=== PATIENT | female | born 1980 | race African-American/Black ===

== ENCOUNTER 2017-03-15 23:26 | Inpatient (IN) | payer OTHER ==
[~2017-03-15] VITALS: Ht 167.6 cm; Wt 72.6 kg
[2017-03-15 23:30] VITALS: BP 134/75
[2017-03-15] MEDS ORDERED: OXYTOCIN 30 UNIT/500 ML PREMIX 500 ML IV PRN (23:45)
[2017-03-15] MEDS ORDERED: IV RINGERS,LACTATED 1000ML 1,000 ML IV SCH (23:45)
[2017-03-15] MEDS ORDERED: IBUPROFEN 600 MG TABLET. PO PRN (23:45)
[2017-03-15] MEDS ORDERED: ACETAMINOPHEN 325 MG TABLET. PO PRN (23:45)
[2017-03-15] MEDS ORDERED: LIDOCAINE 1% PF 30 ML VIAL. INJ PRN (23:45)
[2017-03-15] MEDS ORDERED: 0.9 % SODIUM CHLORIDE 10 ML DISP.SYRIN. IV PRN (23:45)
[2017-03-16] VITALS (12 sets, daily range): BP systolic 112–151; BP diastolic 75–97
[2017-03-16 00:39] LABS: HEMATOCRIT 24.8 % (36.0-47.0); HEMOGLOBIN 7.6 g/dL (12.0-15.5); RED BLOOD COUNT 3.67 x10^6/uL (3.50-5.40); RED CELL DISTRIBUTION WIDTH 20.7 % (11.5-14.5); WHITE BLOOD COUNT 22.4 x10^3/uL (4.0-11.0)
[2017-03-16 00:46] LABS: BILIRUBIN,URINE NEGATIVE (NEG); GLUCOSE,URINE NEGATIVE (NEG); NITRITE,URINE POSITIVE (NEG); PROTEIN,URINE 100 mg/dL (NEG-TRACE); UROBILINOGEN,URINE 0.2 mg/dL (0.2 mg/dL)
[2017-03-16 00:52] LABS: BARBITURATES NEG (NEG); BENZODIAZEPINES NEG (NEG); CANNABINOIDS NEG (NEG); COCAINE NEG (NEG); METHADONE NEG (NEG); OPIATES NEG (NEG); PHENCYCLIDINE NEG (NEG)
[2017-03-16 00:59] LABS: BACTERIA,URINE MANY /HPF (0-FEW); RBC,URINE >40 /HPF (0-2); SQUAMOUS EPITHELIAL CELL,UR FEW /LPF; WBC,URINE 20-40 /HPF (0-4)
[2017-03-16] MEDS ORDERED: METHYLERGONOVINE MALEATE 0.2 MG/ML VIAL. IM ONE ×2 (01:55→02:00)
[2017-03-16] MEDS: AMPICILLIN SODIUM 2 GM in IV NORMAL SALINE 100ML 100 ML IV SCH ×4 (02:00→18:06)
[2017-03-16] MEDS ORDERED: diphenhydrAMINE HCL 25 MG CAPSULE PO PRN (03:15)
[2017-03-16] MEDS ORDERED: ZOLPIDEM 5 MG TABLET. PO PRN (03:15)
[2017-03-16] MEDS ORDERED: HYDROCORTISONE 1% TOPICAL OINTMENT 30GM TUBE. TP PRN (03:15)
[2017-03-16] MEDS ORDERED: oxyCODONE/APAP 5/325 1 TAB TABLET PO PRN (03:15)
[2017-03-16] MEDS ORDERED: MAGNESIUM HYDROXIDE 2,400 MG/30 ML ORAL.SUSP. PO PRN (03:15)
[2017-03-16] MEDS ORDERED: MMR per PROTOCOL. MC PRN (03:15)
[2017-03-16] MEDS ORDERED: IBUPROFEN 800 MG TABLET. PO PRN (03:15)
[2017-03-16] MEDS ORDERED: OXYTOCIN 30 UNIT/500 ML PREMIX 500 ML IV PRN (03:15)
[2017-03-16] MEDS ORDERED: MAG HYDROX/ALUMINUM HYD/SIMETH 30 ML ORAL.SUSP PO PRN (03:15)
[2017-03-16] MEDS ORDERED: 0.9 % SODIUM CHLORIDE 10 ML DISP.SYRIN. IV PRN (03:15)
[2017-03-16] MEDS ORDERED: BENZOCAINE 20% TOPICAL AEROSOL SPRAY 57GM CAN. TP PRN (03:15)
[2017-03-16] MEDS ORDERED: SIMETHICONE 80 MG TAB.CHEW PO PRN (03:15)
[2017-03-16] MEDS ORDERED: PHENYLEPH/MINERAL OIL/PETROLAT RECTAL OINTMENT 28GM TUBE. RC PRN (03:15)
[2017-03-16] MEDS ORDERED: ACETAMINOPHEN 325 MG TABLET. PO PRN (03:15)
[2017-03-16 08:22] LABS: BASO # 0.1 x10^3/uL (0.0-0.2); BASO % 1 % (0-3); EOS % 1 % (0-3); HEMATOCRIT 23.1 % (36.0-47.0); LYMPH # 3.8 x10^3/uL (1.0-4.8); LYMPH % 20 % (24-48); MEAN CORPUSCULAR HEMOGLOBIN 20 pg (25-35); MEAN CORPUSCULAR HGB CONC 30 g/dL (31-37); MEAN CORPUSCULAR VOLUME 67 fL (79-100); MONO % 7 % (0-9); NEUT % 72 % (31-73); PLATELET COUNT 157 x10^3/uL (140-400); RED BLOOD COUNT 3.45 x10^6/uL (3.50-5.40); WHITE BLOOD COUNT 19.1 x10^3/uL (4.0-11.0)
[2017-03-16 08:30] LABS: HEMOGLOBIN 6.8 g/dL (12.0-15.5)
--- NOTE | 2017-03-16 10:01 | PDOC ---
SUBJECTIVE Subjective 36 yrs old lady Delivered at home in the Bathtub All placenta came out.Patient delivered the Baby herself. Came to hospital as it is delivery OBJECTIVE Objective Vital signs stable Uterus firm Vital Signs Vital Signs Date Time Temp Pulse Resp B/P (MAP) Pulse Ox O2 Delivery O2 Flow Rate FiO2 03/16/17 05:41 98.7 77 14 131/90 (104) 98.7 03/16/17 03:37 98.5 75 18 128/83 (98) 98.5 03/16/17 00:48 98.2 98.2 03/15/17 23:30 121 18 134/75 (94) Room Air PHYSICAL EXAM Physical Exam Hb today is 6G Will transfuse 2 units of Packed cells BT Patioent is stable.NO VAGINAL BLEEDING ASSESSMENT/PLAN Assessment/Plan will repeat Hb count after BT Problems: COMMENT Lab Laboratory Tests Test 03/16/17 00:20 03/16/17 00:30 03/16/17 08:07 White Blood Count 22.4 x10^3/uL (4.0-11.0) 19.1 x10^3/uL (4.0-11.0) Red Blood Count 3.67 x10^6/uL (3.50-5.40) 3.45 x10^6/uL (3.50-5.40) Hemoglobin 7.6 g/dL (12.0-15.5) 6.8 g/dL (12.0-15.5) Hematocrit 24.8 % (36.0-47.0) 23.1 % (36.0-47.0) Mean Corpuscular Volume 68 fL (79-100) 67 fL (79-100) Mean Corpuscular Hemoglobin 21 pg (25-35) 20 pg (25-35) Mean Corpuscular Hemoglobin Concent 31 g/dL (31-37) 30 g/dL (31-37) Red Cell Distribution Width 20.7 % (11.5-14.5) 20.0 % (11.5-14.5) Platelet Count 154 x10^3/uL (140-400) 157 x10^3/uL (140-400) Urine Collection Type U cath Urine Color Mana Urine Clarity Cloudy Urine pH 6.0 Urine Specific [place] >=1.030 Urine Protein 100 mg/dL (NEG-TRACE) Urine Glucose (UA) Negative mg/dL (NEG) Urine Ketones (Stick) Negative mg/dL (NEG) Urine Blood Large (NEG) Urine Nitrite Positive (NEG) Urine Bilirubin Negative (NEG) Urine Urobilinogen Dipstick 0.2 mg/dL (0.2 mg/dL) Urine Leukocyte Esterase Small (NEG) Urine RBC >40 /HPF (0-2) Urine WBC 20-40 /HPF (0-4) Urine Squamous Epithelial Cells Few /LPF Urine Bacteria Many /HPF (0-FEW) Urine Mucus Slight /LPF Urine Opiates Screen Neg (NEG) Urine Methadone Screen Neg (NEG) Urine Barbiturates Neg (NEG) Urine Phencyclidine Screen Neg (NEG) Urine Amphetamine/Methamphetamine Neg (NEG) Urine Benzodiazepines Screen Neg (NEG) Urine Cocaine Screen Neg (NEG) Urine Cannabinoids Screen Neg (NEG) Urine Ethyl Alcohol Pos (NEG) Neutrophils (%) (Auto) 72 % (31-73) Lymphocytes (%) (Auto) 20 % (24-48) Monocytes (%) (Auto) 7 % (0-9) Eosinophils (%) (Auto) 1 % (0-3) Basophils (%) (Auto) 1 % (0-3) Neutrophils # (Auto) 13.7 x10^3uL (1.8-7.7) Lymphocytes # (Auto) 3.8 x10^3/uL (1.0-4.8) Monocytes # (Auto) 1.2 x10^3/uL (0.0-1.1) Eosinophils # (Auto) 0.2 x10^3/uL (0.0-0.7) Basophils # (Auto) 0.1 x10^3/uL (0.0-0.2) BRE GOMEZ MD Mar 16, 2017 10:01
--- NOTE | 2017-03-16 10:42 | HP ---
ADMIT DATE: 03/16/2017 CHIEF COMPLAINT AND HISTORY OF PRESENT ILLNESS: This patient is a 36-year-old -Stateless lady who is a 5, para 4 and patient delivered the baby at home in the bathtub and came into the hospital. She did have a labor and delivery and a live 4 pounds baby was delivered at home and the patient says she also delivered the placenta spontaneous and admitted to the hospital for further care and treatment. PHYSICAL EXAMINATION: VITAL SIGNS: Being stable. HEAD, EYES, NOSE, THROAT: Within normal limits. ABDOMEN: Soft. Uterus quite firm. No excessive vaginal bleeding at this time. EXTREMITIES: No edema of feet. IMPRESSION: labor and delivery at home, secondary anemia. Hemoglobin 6 at this time. We will transfuse her with 2 units of packed cells blood transfusion. BRE GOMEZ MD DR: DEEJAY/sammy JOB#: [id number] / [id number]
[2017-03-16 11:33] LABS: HYPOCHROMIA MARKED; MICROCYTOSIS MARKED; PLT ESTIMATE ADEQUATE (ADEQUATE)
[2017-03-16 11:34] LABS: ANISOCYTOSIS MOD
[2017-03-16 23:07] LABS: HEMATOCRIT 28.5 % (36.0-47.0); HEMOGLOBIN 8.8 g/dL (12.0-15.5)
[2017-03-17] MEDS: AMPICILLIN SODIUM 2 GM in IV NORMAL SALINE 100ML 100 ML IV SCH (00:08)
[2017-03-17 05:58] VITALS: BP 116/77
[2017-03-17] MEDS ORDERED: FERROUS SULFATE 325 MG TABLET. PO SCH (08:00)
--- NOTE | 2017-03-17 10:01 | PDOC ---
SUBJECTIVE Subjective Patent feeling good Wants to go home OBJECTIVE Objective Patient received 2 units of Packed cells BT Hb 8.2 today Vital Signs Vital Signs Date Time Temp Pulse Resp B/P (MAP) Pulse Ox O2 Delivery O2 Flow Rate FiO2 03/17/17 05:58 98.1 67 14 116/77 (90) 98.1 03/16/17 23:13 97.8 56 14 131/89 (103) 97.8 03/16/17 18:19 98.2 78 18 118/75 (89) Room Air 98.2 03/16/17 17:16 98.1 79 18 137/93 98.1 03/16/17 16:00 98.9 87 16 125/94 98.9 03/16/17 15:07 98.3 83 18 112/79 98.3 03/16/17 14:43 98.4 85 16 119/76 98.4 03/16/17 12:24 98.7 73 18 138/97 98.7 03/16/17 11:15 98.9 67 16 139/92 98.9 03/16/17 10:14 98.7 81 18 125/87 98.7 PHYSICAL EXAM Physical Exam Abdomen soft No fever Lochia normal ASSESSMENT/PLAN Assessment/Plan Patient can go home today Will see her in 6 weeks in office Problems: COMMENT Lab Laboratory Tests Test 03/16/17 22:00 Hemoglobin 8.8 g/dL (12.0-15.5) Hematocrit 28.5 % (36.0-47.0) Mean Corpuscular Hemoglobin Concent 31 g/dL (31-37) BRE GOMEZ MD Mar 17, 2017 10:01
[2017-03-17] MEDS ORDERED: DIPHTH,PERTUSS(ACELL),TET TOX 0.5 ML DISP.SYRIN. VAX IM ONE (12:00)
[2017-03-17 12:20] VITALS: BP 130/91
[2017-03-17 23:12] LABS: RPR REFLEX Non Reactive (Non Reactive)
== END 2017-03-17 13:09 | disposition home or self-care (01) | DRG 775 ==
LOC: 3 SO LND 23:26 → 3 NORTH 03-16 03:09
PROVIDERS: ADMIT Obstetrics & Gynecology; ATTEND Obstetrics & Gynecology
PROC: 30233N1 Transfusion of Nonautologous Red Blood Cells into Peripheral Vein, Percutaneous Approach (ICD-10-PCS; principal; 2017-03-16)
DX: O60.10X0 Preterm labor with preterm delivery, unspecified trimester, not applicable or unspecified (principal); Z37.0 Single live birth
CPT/HCPCS: 36415; 80307; 81001; 85007; 85014; 85018; 85025; 85027; 86593; 86762; 86850; 86900; 86901; 86920; 87086; 87340; 87341; 90715; J0290; J2210; J2590; P9016; G0479

== ENCOUNTER 2020-01-27 11:31 | Inpatient (IN) | payer OTHER ==
[~2020-01-27] VITALS: Ht 167.6 cm; Wt 83.2 kg
[2020-01-27] MEDS ORDERED: FAMOTIDINE 20 MG/2 ML VIAL IVP ONE (12:00)
[2020-01-27] MEDS ORDERED: ONDANSETRON PF 4 MG/2 ML VIAL. IVP ONE (12:00)
[2020-01-27] MEDS ORDERED: IV NORMAL SALINE 1000ML BAG 1,000 ML IV ONE (12:00)
[2020-01-27 12:23] LABS: BASO # 0.1 x10^3/uL (0.0-0.2); BASO % 0 % (0-3); EOS # 0.1 x10^3/uL (0.0-0.7); EOS % 1 % (0-3); HEMATOCRIT 44.2 % (36.0-47.0); HEMOGLOBIN 14.9 g/dL (12.0-15.5); LYMPH # 2.4 x10^3/uL (1.0-4.8); LYMPH % 13 % (24-48); MEAN CORPUSCULAR HEMOGLOBIN 30 pg (25-35); MEAN CORPUSCULAR HGB CONC 34 g/dL (31-37); MEAN CORPUSCULAR VOLUME 90 fL (79-100); MONO # 1.8 x10^3/uL (0.0-1.1); MONO % 10 % (0-9); NEUT # 14.6 x10^3/uL (1.8-7.7); NEUT % 77 % (31-73); PLATELET COUNT 273 x10^3/uL (140-400); RED BLOOD COUNT 4.91 x10^6/uL (3.50-5.40); RED CELL DISTRIBUTION WIDTH 13.4 % (11.5-14.5); WHITE BLOOD COUNT 19.1 x10^3/uL (4.0-11.0)
[2020-01-27 12:28] LABS: BILIRUBIN,URINE MODERATE (NEG); CLARITY,URINE CLOUDY; COLOR,URINE AMBER; NITRITE,URINE NEGATIVE (NEG); PROTEIN,URINE NEGATIVE (NEG-TRACE)
[2020-01-27 12:46] LABS: ALBUMIN 3.9 g/dL (3.4-5.0); ALBUMIN/GLOBULIN RATIO 0.8 (1.0-1.7); CALCIUM 10.1 mg/dL (8.5-10.1); CREATININE 0.9 mg/dL (0.6-1.0); GFR 84.8; MAGNESIUM 1.6 mg/dL (1.8-2.4); TOTAL BILIRUBIN 1.4 mg/dL (0.2-1.0); TOTAL PROTEIN 8.8 g/dL (6.4-8.2)
[2020-01-27 12:48] LABS: AMORPHOUS SEDIMENT,UR PRESENT /HPF; HYALINE CASTS, URINE FEW /HPF; SQUAMOUS EPITHELIAL CELL,UR FEW /LPF
[2020-01-27 12:50] LABS: BACTERIA,URINE FEW /HPF (0-FEW)
[2020-01-27 12:53] LABS: BARBITURATES NEG (NEG); BENZODIAZEPINES NEG (NEG); CANNABINOIDS NEG (NEG); COCAINE NEG (NEG); METHADONE NEG (NEG); OPIATES NEG (NEG); PHENCYCLIDINE NEG (NEG)
[2020-01-27 13:05] LABS: POTASSIUM 1.8 mmol/L (3.5-5.1)
[2020-01-27 13:06] LABS: AMPHETAMINE/METHAMPHETAMINE NEG (NEG)
[2020-01-27 13:09] LABS: % ATYL 3 % (0-0); % LYMPHS 20 % (24-48); % MONOS 9 % (0-10); % SEGS 68 % (35-66); PLT ESTIMATE ADEQUATE (ADEQUATE)
[2020-01-27] MEDS ORDERED: POTASSIUM CHLORIDE 20 MEQ TABLET.ER. PO ONE (13:15)
[2020-01-27] MEDS ORDERED: IOHEXOL 300 MG/ML 100ML VIAL. IV ONE ×2 (13:15→14:30)
[2020-01-27 14:26] LABS: U PREG PATIENT NEGATIVE (NEG)
[2020-01-27] MEDS ORDERED: CONTRAST GIVEN. MC PRN (14:30)
--- NOTE | 2020-01-27 14:59 | RAD ---
EXAM: CT Abdomen and Pelvis with IV contrast INDICATION: Reason: abd pain, elevated WBC / Spl. Instructions: [id number] 75ml / History: TECHNIQUE: Multi-detector row CT images were acquired from the lung bases through the abdomen and pelvis with the use of IV contrast. Sagittal and coronal images were acquired from the transaxial data. All CT scans performed at this facility utilize dose optimization techniques as appropriate to the exam, including the following: Automated exposure control and adjustment of the mA and/or KV according to patient size (this includes techniques or standardized protocols for targeted exams where dose is indication/reason for exam). IV CONTRAST: Administered ORAL CONTRAST: Administered COMPARISON: None FINDINGS: LOWER CHEST: Unremarkable LIVER: Unremarkable BILIARY SYSTEM: Gallbladder is unremarkable. Bile ducts are not dilated. PANCREAS: Unremarkable SPLEEN: Unremarkable ADRENALS: Unremarkable KIDNEYS & URETERS: Unremarkable BLADDER: Unremarkable REPRODUCTIVE ORGANS: Unremarkable GASTROINTESTINAL: There is mild wall thickening in the large bowel, primarily involving the ascending colon and the transverse colon. Mild associated mesenteric hyperemia. Mild nonspecific wall thickening in the gastric antrum is also noted. The small bowel is unremarkable. The appendix is not well seen. There are no findings of acute appendicitis. MESENTERY/PERITONEUM/RETROPERITONEUM: Unremarkable VASCULAR: Unremarkable LYMPH NODES: No adenopathy OSSEOUS & SOFT TISSUES: Unremarkable IMPRESSION: Findings suggesting acute predominantly right-sided and transverse colitis without findings of bowel obstruction or perforation. Superimposed acute gastric antritis also possible. Electronically signed by: Kashif Estrada MD (01/27/2020 2:56 PM) [facility] [place]
[2020-01-27] MEDS ORDERED: CIPROFLOXACIN 400MG PREMIX 200 ML IV ONE (15:30)
[2020-01-27] MEDS ORDERED: ONDANSETRON PF 4 MG/2 ML VIAL. IV PRN (15:30)
[2020-01-27] MEDS ORDERED: MORPHINE SULFATE 2 MG/ML VIAL. IV PRN (15:30)
[2020-01-27] MEDS ORDERED: MAGNESIUM SULFATE 2GM 50 ML IV ONE (15:30)
--- NOTE | 2020-01-27 16:31 | PDOC2 ---
GI CONSULT Date of Service: DATE: 01/27/20 TIME: 16:31 Reason For Consult: acute colitis HPI: HPI: 39 y/o female in ER. Ill for 2-3 weeks. Denies precipitating events. Might have started with diarrhea but that's not too unusual for her, so she didn't think much of it and diarrhea did not recur. Then had bodyaches. Then started vomiting last Saturday. No appetite and unable to keep anything down since - tried chicken and rice earlier this week, vomited 10-15 minutes later. Has low back pain, pelvic pain, and "discharge from my belly button." Had GERD during . No dysphagia, hematemesis, chronic abd pain, hematochezia, melena. Assumes weight loss. Hasn't passed much stool lately since not eating much. No fever but has had some cough and shortness of breath. No previous EGD or colonoscopy. No GB, liver, pancreas, or PUD history. PMH: PMH: per HPI FH: Family History: Other (adopted - mother has kidney problems) Social History: Smoke: No ALCOHOL: none Drugs: None ROS: GEN: Denies fevers, chills, sweats HEENT: Denies blurred vision, sore throat CV: Denies chest pain RESP: +SOA +cough GI: Per HPI : Denies hematuria, dysuria ENDO: +weight loss NEURO: Denies confusion, dizziness MSK: +back pain SKIN: Denies jaundice, pruritus Vitals: Vitals: Vital Signs Date Time Temp Pulse Resp B/P (MAP) Pulse Ox O2 Delivery O2 Flow Rate FiO2 01/27/20 13:35 68 16 129/87 (101) 96 Room Air 01/27/20 11:31 98.3 98.3 Labs: Labs: Laboratory Tests Test 01/27/20 11:57 01/27/20 12:10 White Blood Count 19.1 x10^3/uL (4.0-11.0) Red Blood Count 4.91 x10^6/uL (3.50-5.40) Hemoglobin 14.9 g/dL (12.0-15.5) Hematocrit 44.2 % (36.0-47.0) Mean Corpuscular Volume 90 fL (79-100) Mean Corpuscular Hemoglobin 30 pg (25-35) Mean Corpuscular Hemoglobin Concent 34 g/dL (31-37) Red Cell Distribution Width 13.4 % (11.5-14.5) Platelet Count 273 x10^3/uL (140-400) Neutrophils (%) (Auto) 77 % (31-73) Lymphocytes (%) (Auto) 13 % (24-48) Monocytes (%) (Auto) 10 % (0-9) Eosinophils (%) (Auto) 1 % (0-3) Basophils (%) (Auto) 0 % (0-3) Neutrophils # (Auto) 14.6 x10^3/uL (1.8-7.7) Lymphocytes # (Auto) 2.4 x10^3/uL (1.0-4.8) Monocytes # (Auto) 1.8 x10^3/uL (0.0-1.1) Eosinophils # (Auto) 0.1 x10^3/uL (0.0-0.7) Basophils # (Auto) 0.1 x10^3/uL (0.0-0.2) Segmented Neutrophils % 68 % (35-66) Lymphocytes % 20 % (24-48) Atypical Lymphocytes % (Manual) 3 % (0-0) Monocytes % 9 % (0-10) Platelet Estimate Adequate (ADEQUATE) Sodium Level 121 mmol/L (136-145) Potassium Level 1.8 mmol/L (3.5-5.1) Chloride Level 76 mmol/L (98-107) Carbon Dioxide Level 34 mmol/L (21-32) Anion Gap 11 (6-14) Blood Urea Nitrogen 10 mg/dL (7-20) Creatinine 0.9 mg/dL (0.6-1.0) Estimated GFR (Cockcroft-Gault) 84.8 BUN/Creatinine Ratio 11 (6-20) Glucose Level 139 mg/dL (70-99) Calcium Level 10.1 mg/dL (8.5-10.1) Magnesium Level 1.6 mg/dL (1.8-2.4) Total Bilirubin 1.4 mg/dL (0.2-1.0) Aspartate Amino Transf (AST/SGOT) 40 U/L (15-37) Alanine Aminotransferase (ALT/SGPT) 39 U/L (14-59) Alkaline Phosphatase 116 U/L (46-116) Total Protein 8.8 g/dL (6.4-8.2) Albumin 3.9 g/dL (3.4-5.0) Albumin/Globulin Ratio 0.8 (1.0-1.7) Lipase 207 U/L (73-393) Ethyl Alcohol Level < 10 mg/dL (0-10) Urine Collection Type U cath Urine Color Mana Urine Clarity Cloudy Urine pH 5.0 (<5.0-8.0) Urine Specific [place] 1.025 (1.000-1.030) Urine Protein Negative mg/dL (NEG-TRACE) Urine Glucose (UA) Negative mg/dL (NEG) Urine Ketones (Stick) 15 mg/dL (NEG) Urine Blood Small (NEG) Urine Nitrite Negative (NEG) Urine Bilirubin Moderate (NEG) Urine Urobilinogen Dipstick 1.0 mg/dL (0.2 mg/dL) Urine Leukocyte Esterase Small (NEG) Urine RBC 1-2 /HPF (0-2) Urine WBC 5-10 /HPF (0-4) Urine Squamous Epithelial Cells Few /LPF Urine Amorphous Sediment Present /HPF Urine Bacteria Few /HPF (0-FEW) Urine Hyaline Casts Few /HPF Urine Mucus Mod /LPF Urine Test Negative (NEG) Urine Opiates Screen Neg (NEG) Urine Methadone Screen Neg (NEG) Urine Barbiturates Neg (NEG) Urine Phencyclidine Screen Neg (NEG) Urine Amphetamine/Methamphetamine Neg (NEG) Urine Benzodiazepines Screen Neg (NEG) Urine Cocaine Screen Neg (NEG) Urine Cannabinoids Screen Neg (NEG) Urine Ethyl Alcohol Neg (NEG) Allergies: Coded Allergies: No Known Drug Allergies (Unverified , 03/15/17) Medications: Current Medications Medications (Trade) Dose Ordered Sig/Onelia Route PRN Reason Start Time Stop Time Status Last Admin Dose Admin Sodium Chloride 1,000 ml @ 1,000 mls/hr 1X ONCE IV 01/27/20 12:00 01/27/20 12:59 DC 01/27/20 12:05 Ondansetron HCl (Zofran) 4 mg 1X ONCE IVP 01/27/20 12:00 01/27/20 12:01 DC 01/27/20 12:05 Famotidine (Pepcid Vial) 20 mg 1X ONCE IVP 01/27/20 12:00 01/27/20 12:01 DC 01/27/20 12:05 Iohexol (Omnipaque 300 Mg/ml) 75 ml 1X ONCE IV 01/27/20 13:15 01/27/20 13:17 DC 01/27/20 14:35 Potassium Chloride (Klor-Con) 40 meq 1X ONCE PO 01/27/20 13:15 01/27/20 13:17 DC 01/27/20 13:52 Metronidazole 100 ml @ 100 mls/hr 1X ONCE IV 01/27/20 15:45 01/27/20 16:44 01/27/20 15:55 Imaging: Imaging: CT A/P IMPRESSION: Findings suggesting acute predominantly right-sided and transverse colitis without findings of bowel obstruction or perforation. Superimposed acute gastric antritis also possible. PE: GEN: uncomfortable HEENT: Atraumatic, PERRL LUNGS: CTAB HEART: RRR ABD: suprapubic discomfort, quiet BS EXTREMITY: No edema SKIN: inside umbilicus superficial wound - no drainage appreciated NEURO/PSYCH: A & O 3 A/P: A/P: Vomiting, suprapubic pain, myalgias, umbilical drainage Leukocytosis, hypokalemia, hyponatremia, hypomagnesemia, mildly elevated bili and AST Abnormal CT - right-sided/transverse colitis, possible gastritis H/o GERD during . CRC screen - average risk R/o COVID-19 -- Address electrolyte abnormalities. IV acid-lead solutions architect for now. "Colitis" on CT noted but tells me no abdominal pain, no diarrhea, no bleeding - ER gave IV Cipro and Flagyl x 1 - ?continue - will d/w Dr. Ellis. Monitor LFTs, consider additional liver imaging if indicated. Consider outpt EGD/colonoscopy pending clinical course. RODRIGUEZ CARVER Jan 27, 2020 16:31
--- NOTE | 2020-01-27 16:38 | PHYS DOC ---
Past Medical History Past Medical History: No Pertinent History Past Surgical History: Other Additional Past Surgical Histo: left eye tumor surgery Smoking Status: Never Smoker Alcohol Use: Occasionally General Adult EDM: Chief Complaint: NAUSEA/VOMITING/DIARRHA HPI: HPI: Patient is a 39 year old female who presents the ED today complaining of 10 out of 10 generalized abdominal pain with nausea vomiting that began a week ago. Patient states symptoms have been intermittent and got worse yesterday. Denies any diarrhea. Denies any hematemesis or melena. He is also complaining of a tiny wound on the umbilicus that she noted yesterday. She states the area was draining yellow purulent material. Review of Systems: Review of Systems: Constitutional: Denies fever or chills. [] Eyes: Denies change in visual acuity. [] HENT: Denies nasal congestion or sore throat. [] Respiratory: Denies cough or shortness of breath. [] Cardiovascular: Denies chest pain or edema. [] GI: reports generalized abdominal pain with nausea and vomiting, denies bloody stools or diarrhea. [] : Denies dysuria. [] Musculoskeletal: Denies back pain or joint pain. [] Integument: Denies rash. [] Neurologic: Denies headache, focal weakness or sensory changes. [] Endocrine: Denies polyuria or polydipsia. [] Lymphatic: Denies swollen glands. [] Psychiatric: Denies depression or anxiety. [] Heart Score: Risk Factors: Risk Factors: DM, Current or recent (<one month) smoker, HTN, HLP, family history of CAD, obesity. Risk Scores: Score 0 - 3: 2.5% MACE over next 6 weeks - Discharge Home Score 4 - 6: 20.3% MACE over next 6 weeks - Admit for Clinical Observation Score 7 - 10: 72.7% MACE over next 6 weeks - Early Invasive Strategies Current Medications: Current Medications Medications (Trade) Dose Ordered Sig/Onelia Start Time Stop Time Status Last Admin Dose Admin Ciprofloxacin/ Dextrose 200 ml @ 200 mls/hr 1X ONCE 01/27/20 15:30 01/27/20 16:29 DC Famotidine (Pepcid Vial) 20 mg 1X ONCE 01/27/20 12:00 01/27/20 12:01 DC 01/27/20 12:05 20 MG Info (CONTRAST GIVEN -- Rx MONITORING) 1 each PRN DAILY PRN 01/27/20 14:30 01/29/20 14:29 Iohexol (Omnipaque 300 Mg/ml) 75 ml 1X ONCE 01/27/20 14:30 01/27/20 14:31 DC Magnesium Sulfate 50 ml @ 25 mls/hr 1X ONCE 01/27/20 15:30 01/27/20 17:29 Metronidazole 100 ml @ 100 mls/hr 1X ONCE 01/27/20 15:45 01/27/20 16:44 01/27/20 15:55 100 MLS/HR Morphine Sulfate (Morphine Sulfate) 2 mg PRN Q2HR PRN 01/27/20 15:30 01/28/20 15:29 Ondansetron HCl (Zofran) 4 mg PRN Q8HRS PRN 01/27/20 15:30 01/28/20 15:29 Potassium Chloride/Sodium Chloride 1,000 ml @ 75 mls/hr [id number] ONCE 01/27/20 16:00 01/28/20 05:19 Potassium Chloride (Klor-Con) 40 meq 1X ONCE 01/27/20 13:15 01/27/20 13:17 DC 01/27/20 13:52 40 MEQ Sodium Chloride 1,000 ml @ 1,000 mls/hr 1X ONCE 01/27/20 12:00 01/27/20 12:59 DC 01/27/20 12:05 1,000 MLS/HR Allergies: Allergies: Allergies Coded Allergies Type Severity Reaction Last Updated Verified No Known Drug Allergies 03/15/17 No Physical Exam: PE: Constitutional: Well developed, well nourished, no acute distress, non-toxic appearance. [] HENT: Normocephalic, atraumatic, bilateral external ears normal, oropharynx moist, no oral exudates, nose normal. [] Eyes: PERRLA, EOMI, conjunctiva normal, no discharge. [] Neck: Normal range of motion, no tenderness, supple, no stridor. [] Cardiovascular:Heart rate regular rhythm, no murmur [] Lungs & Thorax: Bilateral breath sounds clear to auscultation [] Abdomen: Bowel sounds normal, soft, diffuse tenderness around the umbilicus. There is a tiny area of erythema around the umbilicus, no masses, no pulsatile masses. [] Skin: Warm, dry, no erythema, no rash. [] Back: No tenderness, no CVA tenderness. [] Extremities: No tenderness, no cyanosis, no clubbing, ROM intact, no edema. [] Neurologic: Alert and oriented X 3, normal motor function, normal sensory function, no focal deficits noted. [] Psychologic: Affect normal, judgement normal, mood normal. [] Current Patient Data: Labs: Laboratory Tests Test 01/27/20 11:57 01/27/20 12:10 White Blood Count 19.1 x10^3/uL (4.0-11.0) H Red Blood Count 4.91 x10^6/uL (3.50-5.40) Hemoglobin 14.9 g/dL (12.0-15.5) Hematocrit 44.2 % (36.0-47.0) Mean Corpuscular Volume 90 fL (79-100) Mean Corpuscular Hemoglobin 30 pg (25-35) Mean Corpuscular Hemoglobin Concent 34 g/dL (31-37) Red Cell Distribution Width 13.4 % (11.5-14.5) Platelet Count 273 x10^3/uL (140-400) Neutrophils (%) (Auto) 77 % (31-73) H Lymphocytes (%) (Auto) 13 % (24-48) L Monocytes (%) (Auto) 10 % (0-9) H Eosinophils (%) (Auto) 1 % (0-3) Basophils (%) (Auto) 0 % (0-3) Neutrophils # (Auto) 14.6 x10^3/uL (1.8-7.7) H Lymphocytes # (Auto) 2.4 x10^3/uL (1.0-4.8) Monocytes # (Auto) 1.8 x10^3/uL (0.0-1.1) H Eosinophils # (Auto) 0.1 x10^3/uL (0.0-0.7) Basophils # (Auto) 0.1 x10^3/uL (0.0-0.2) Segmented Neutrophils % 68 % (35-66) H Lymphocytes % 20 % (24-48) L Atypical Lymphocytes % (Manual) 3 % (0-0) H Monocytes % 9 % (0-10) Platelet Estimate Adequate (ADEQUATE) Sodium Level 121 mmol/L (136-145) L Potassium Level 1.8 mmol/L (3.5-5.1) *L Chloride Level 76 mmol/L (98-107) L Carbon Dioxide Level 34 mmol/L (21-32) H Anion Gap 11 (6-14) Blood Urea Nitrogen 10 mg/dL (7-20) Creatinine 0.9 mg/dL (0.6-1.0) Estimated GFR (Cockcroft-Gault) 84.8 BUN/Creatinine Ratio 11 (6-20) Glucose Level 139 mg/dL (70-99) H Calcium Level 10.1 mg/dL (8.5-10.1) Magnesium Level 1.6 mg/dL (1.8-2.4) L Total Bilirubin 1.4 mg/dL (0.2-1.0) H Aspartate Amino Transferase (AST) 40 U/L (15-37) H Alanine Aminotransferase (ALT) 39 U/L (14-59) Alkaline Phosphatase 116 U/L (46-116) Total Protein 8.8 g/dL (6.4-8.2) H Albumin 3.9 g/dL (3.4-5.0) Albumin/Globulin Ratio 0.8 (1.0-1.7) L Lipase 207 U/L (73-393) Ethyl Alcohol Level < 10 mg/dL (0-10) Urine Collection Type U cath Urine Color Mana Urine Clarity Cloudy Urine pH 5.0 (<5.0-8.0) Urine Specific [place] 1.025 (1.000-1.030) Urine Protein Negative mg/dL (NEG-TRACE) Urine Glucose (UA) Negative mg/dL (NEG) Urine Ketones (Stick) 15 mg/dL (NEG) Urine Blood Small (NEG) Urine Nitrite Negative (NEG) Urine Bilirubin Moderate (NEG) Urine Urobilinogen Dipstick 1.0 mg/dL (0.2 mg/dL) Urine Leukocyte Esterase Small (NEG) Urine RBC 1-2 /HPF (0-2) Urine WBC 5-10 /HPF (0-4) Urine Squamous Epithelial Cells Few /LPF Urine Amorphous Sediment Present /HPF Urine Bacteria Few /HPF (0-FEW) Urine Hyaline Casts Few /HPF Urine Mucus Mod /LPF Urine Test Negative (NEG) Urine Opiates Screen Neg (NEG) Urine Methadone Screen Neg (NEG) Urine Barbiturates Neg (NEG) Urine Phencyclidine Screen Neg (NEG) Urine Amphetamine/Methamphetamine Neg (NEG) Urine Benzodiazepines Screen Neg (NEG) Urine Cocaine Screen Neg (NEG) Urine Cannabinoids Screen Neg (NEG) Urine Ethyl Alcohol Neg (NEG) Laboratory Tests 01/27/20 11:57 Laboratory Tests 01/27/20 11:57 Vital Signs: Vital Signs Date Time Temp Pulse Resp B/P (MAP) Pulse Ox O2 Delivery O2 Flow Rate FiO2 01/27/20 13:35 68 16 129/87 (101) 96 Room Air 01/27/20 11:31 98.3 98.3 EKG: EKG: [] Radiology/Procedures: Radiology/Procedures: []PROCEDURE: CT ABD PELV W/ IV CONTRST ONLY EXAM: CT Abdomen and Pelvis with IV contrast INDICATION: Reason: abd pain, elevated WBC / Spl. Instructions: [id number] 75ml / History: TECHNIQUE: Multi-detector row CT images were acquired from the lung bases through the abdomen and pelvis with the use of IV contrast. Sagittal and coronal images were acquired from the transaxial data. All CT scans performed at this facility utilize dose optimization techniques as appropriate to the exam, including the following: Automated exposure control and adjustment of the mA and/or KV according to patient size (this includes techniques or standardized protocols for targeted exams where dose is indication/reason for exam). IV CONTRAST: Administered ORAL CONTRAST: Administered COMPARISON: None FINDINGS: LOWER CHEST: Unremarkable LIVER: Unremarkable BILIARY SYSTEM: Gallbladder is unremarkable. Bile ducts are not dilated. PANCREAS: Unremarkable SPLEEN: Unremarkable ADRENALS: Unremarkable KIDNEYS & URETERS: Unremarkable BLADDER: Unremarkable REPRODUCTIVE ORGANS: Unremarkable GASTROINTESTINAL: There is mild wall thickening in the large bowel, primarily involving the ascending colon and the transverse colon. Mild associated mesenteric hyperemia. Mild nonspecific wall thickening in the gastric antrum is also noted. The small bowel is unremarkable. The appendix is not well seen. There are no findings of acute appendicitis. MESENTERY/PERITONEUM/RETROPERITONEUM: Unremarkable VASCULAR: Unremarkable LYMPH NODES: No adenopathy OSSEOUS & SOFT TISSUES: Unremarkable IMPRESSION: Findings suggesting acute predominantly right-sided and transverse colitis without findings of bowel obstruction or perforation. Superimposed acute gastric antritis also possible. Electronically signed by: Stew Estrada MD (01/27/2020 2:56 PM) [facility] – [place] DICTATED and SIGNED BY: STEW ESTRADA MD DATE: 01/27/20 6408 Course & Med Decision Making: Course & Med Decision Making Pertinent Labs and Imaging studies reviewed. (See chart for details) This is a 39-year-old female patient presenting to the ED today complaining of nausea, vomiting, abdominal pain and a sore around her umbilicus. CBC with a WBC of 19.1 and a left shift. CMP with sodium of 121, potassium 1.8, patient was given oral potassium replacement as well as IV potassium. Glucose 139. CT of the abdomen and pelvic was noted for colitis. Vitals are stable with normal temperature Spoke with Dr. Butterfield who accepted patient for admission Routine consult placed for GI Given IV fluids, nausea medicine, Flagyl and Cipro started. Dragon Disclaimer: Dragon Disclaimer: This electronic medical record was generated, in whole or in part, using a voice recognition dictation system. Departure Departure Impression: Primary Impression: Colitis Additional Impressions: Cellulitis of umbilicus Hyponatremia Hypokalemia Person under investigation for COVID-19 Disposition: ADMITTED INPATIENT Condition: STABLE Referrals: UNKNOWN PCP NAME (PCP) Justicifation of Admission Dx: Justifications for Admission: Justification of Admission Dx: Yes TEE RUSSELL ACCOUNT ANALYST Jan 27, 2020 16:38
[2020-01-27 19:00] VITALS: BP 102/71
--- NOTE | 2020-01-27 19:10 | NUR ---
Pt arrived to [facility] 114 via ER wheelchair. Pt A&Ox4, oriented to room and nursing call light. Pt hooked up to ICU monitor. Report given to ZAKIA Miller on waterfront director.
[2020-01-27 20:00] VITALS: BP 107/71
[2020-01-27 21:00] VITALS: BP 100/72
[2020-01-27] MEDS: FAMOTIDINE 20 MG/2 ML VIAL IVP SCH (21:35)
[2020-01-27 22:00] VITALS: BP 116/87
[2020-01-27 23:00] VITALS: BP 116/64
--- NOTE | 2020-01-27 23:39 | PDOC1 ---
History and Physical Date of Admission Date of Admission DATE: 01/27/20 TIME: 23:10 Identification/Chief Complaint Chief Complaint Abdominal pain, nausea, and vomiting Source Source: Patient History of Present Illness History of Present Illness Patient is a 39 yo female who presents with stomach pain for the past 3 weeks. Her pain has worsened overt he past week. She reports generalized aching pain, 10/10. Associated nausea and vomiting. She has even been unable to keep down liquids. She denies diarrhea. Denies any aggravating or alleviating factors. Past Medical History Past Medical History None Past Surgical History Past Surgical History Left eye tumor surgery Family History Family History: No Significant Social History Smoke: No ALCOHOL: none Drugs: None Current Problem List Problem List Problems Medical Problems: (1) Cellulitis of umbilicus Status: Acute (2) Colitis Status: Acute (3) Hypokalemia Status: Acute (4) Hyponatremia Status: Acute (5) Person under investigation for COVID-19 Status: Acute Current Medications Current Medications Current Medications Sodium Chloride 1,000 ml @ 1,000 mls/hr 1X ONCE IV Last administered on 01/27/20at 12:05; Start 01/27/20 at 12:00; Stop 01/27/20 at 12:59; Status DC Ondansetron HCl (Zofran) 4 mg 1X ONCE IVP Last administered on 01/27/20at 12:05; Start 01/27/20 at 12:00; Stop 01/27/20 at 12:01; Status DC Famotidine (Pepcid Vial) 20 mg 1X ONCE IVP Last administered on 01/27/20at 12:05; Start 01/27/20 at 12:00; Stop 01/27/20 at 12:01; Status DC Iohexol (Omnipaque 300 Mg/ml) 75 ml 1X ONCE IV Last administered on 01/27/20at 14:35; Start 01/27/20 at 13:15; Stop 01/27/20 at 13:17; Status DC Potassium Chloride (Klor-Con) 40 meq 1X ONCE PO Last administered on 01/27/20at 13:52; Start 01/27/20 at 13:15; Stop 01/27/20 at 13:17; Status DC Iohexol (Omnipaque 300 Mg/ml) 75 ml 1X ONCE IV ; Start 01/27/20 at 14:30; Stop 01/27/20 at 14:31; Status DC Info (CONTRAST GIVEN -- Rx MONITORING) 1 each PRN DAILY PRN MC SEE COMMENTS; Start 01/27/20 at 14:30; Stop 01/29/20 at 14:29 Ondansetron HCl (Zofran) 4 mg PRN Q8HRS PRN IV NAUSEA/VOMITING; Start 01/27/20 at 15:30; Stop 01/28/20 at 15:29 Morphine Sulfate (Morphine Sulfate) 2 mg PRN Q2HR PRN IV PAIN Last administered on 01/27/20at 20:24; Start 01/27/20 at 15:30; Stop 01/28/20 at 15:29 Ciprofloxacin/ Dextrose 200 ml @ 200 mls/hr 1X ONCE IV ; Start 01/27/20 at 15:30; Stop 01/27/20 at 16:29; Status DC Metronidazole 100 ml @ 100 mls/hr Q8HRS IV Last administered on 01/27/20at 23:02; Start 01/27/20 at 22:00 Potassium Chloride/Sodium Chloride 1,000 ml @ 75 mls/hr [id number] ONCE IV Last administered on 01/27/20at 19:48; Start 01/27/20 at 16:00; Stop 01/28/20 at 05:19 Magnesium Sulfate 50 ml @ 25 mls/hr 1X ONCE IV Last administered on 01/27/20at 16:54; Start 01/27/20 at 15:30; Stop 01/27/20 at 17:29; Status DC Metronidazole 100 ml @ 100 mls/hr 1X ONCE IV Last administered on 01/27/20at 15:55; Start 01/27/20 at 15:45; Stop 01/27/20 at 16:44; Status DC Famotidine (Pepcid Vial) 20 mg BID IVP Last administered on 01/27/20at 21:35; Start 01/27/20 at 21:00 Levofloxacin/ Dextrose 100 ml @ 100 mls/hr Q24H IV Last administered on 01/27/20at 21:42; Start 01/27/20 at 19:00 Allergies Allergies: Coded Allergies: No Known Drug Allergies (Unverified , 03/15/17) ROS General: No: Chills, Night Sweats, Fatigue, Malaise, Appetite, Other PSYCHOLOGICAL ROS: No: Anxiety, Behavioral Disorder, Concentration difficultie, Decreased libido, Depression, Disorientation, Hallucinations, Hostility, Irritablity, Memory difficulties, Mood Swings, Obsessive thoughts, Physical abus e, Sexual abuse, Sleep disturbances, Suicidal ideation, Other Eyes: No Blurry vision, No Decreased vision, No Double vision, No Dry eyes, No Excessive tearing, No Eye Pain, No Itchy Eyes, No Loss of vision, No Photophobia, No Scotomata, No Uses contacts, No Uses glasses, No Other HEENT: No: Heacaches, Visual Changes, Hearing change, Nasal congestion, Nasal discharge, Oral lesions, Sinus pain, Sore Throat, Epistaxis, Sneezing, Snoring, Tinnitus, Vertigo, Vocal changes, Other ALLERGY AND IMMUNOLOGY: No: Hives, Insect Bite Sensitivity, Itchy/Watery Eyes, Nasal Congestion, Post Nasal Drip, Seasonal Allergies, Other Hematological and Lymphatic: No: Bleeding Problems, Blood Clots, Blood Transfusions, Brusing, Night Sweats, Pallor, Swollen Lymph Nodes, Other Gastrointestinal: Yes Nausea, Yes Vomiting, Yes Abdominal Pain Musculoskeletal: No Gait Disturbance, No Joint Pain, No Joint Stiffness, No Joint Swelling, No Muscle Pain, No Muscular Weakness, No Pain In:, No Swelling In:, No Other Neurological: No Behavorial Changes, No Bowel/Bladder ControlChng, No Confusion, No Dizziness, No Gait Disturbance, No Headaches, No Impaired Coord/balance, No Memory Loss, No Numbness/Tingling, No Seizures, No Speech Problems, No Tremors, No Visual Changes, No Weakness, No Other Skin: No Dry Skin, No Eczema, No Hair Changes, No Lumps, No Mole Changes, No Mottling, No Nail Changes, No Pruritus, No Rash, No Skin Lesion Changes, No Other, No Acne Physical Exam General: Alert, Oriented X3, mild distress HEENT: PERRLA Lungs: Clear to auscultation, Normal air movement Heart: RRR, no murmurs Cardiovascular: S1, S2 Abdomen: Other (Genertalized abdominal tenderness) Extremities: No clubbing, No cyanosis, No edema, Normal pulses, No tenderness/swelling Skin: No rashes, No breakdown, No significant lesion Neuro: Normal gait, Normal speech, Strength at 5/5 X4 ext, Normal tone, Sen sation intact, Cranial nerves 3-12 NL, Reflexes 2+ Psych/Mental Status: Mental status NL, Mood NL Vitals Vitals Vital Signs Date Time Temp Pulse Resp B/P (MAP) Pulse Ox O2 Delivery O2 Flow Rate FiO2 01/27/20 23:00 68 28 116/64 (81) 98 Room Air 01/27/20 20:00 98.3 98.3 Labs Labs Laboratory Tests Test 01/27/20 11:57 01/27/20 12:10 White Blood Count 19.1 x10^3/uL (4.0-11.0) Red Blood Count 4.91 x10^6/uL (3.50-5.40) Hemoglobin 14.9 g/dL (12.0-15.5) Hematocrit 44.2 % (36.0-47.0) Mean Corpuscular Volume 90 fL (79-100) Mean Corpuscular Hemoglobin 30 pg (25-35) Mean Corpuscular Hemoglobin Concent 34 g/dL (31-37) Red Cell Distribution Width 13.4 % (11.5-14.5) Platelet Count 273 x10^3/uL (140-400) Neutrophils (%) (Auto) 77 % (31-73) Lymphocytes (%) (Auto) 13 % (24-48) Monocytes (%) (Auto) 10 % (0-9) Eosinophils (%) (Auto) 1 % (0-3) Basophils (%) (Auto) 0 % (0-3) Neutrophils # (Auto) 14.6 x10^3/uL (1.8-7.7) Lymphocytes # (Auto) 2.4 x10^3/uL (1.0-4.8) Monocytes # (Auto) 1.8 x10^3/uL (0.0-1.1) Eosinophils # (Auto) 0.1 x10^3/uL (0.0-0.7) Basophils # (Auto) 0.1 x10^3/uL (0.0-0.2) Segmented Neutrophils % 68 % (35-66) Lymphocytes % 20 % (24-48) Atypical Lymphocytes % (Manual) 3 % (0-0) Monocytes % 9 % (0-10) Platelet Estimate Adequate (ADEQUATE) Sodium Level 121 mmol/L (136-145) Potassium Level 1.8 mmol/L (3.5-5.1) Chloride Level 76 mmol/L (98-107) Carbon Dioxide Level 34 mmol/L (21-32) Anion Gap 11 (6-14) Blood Urea Nitrogen 10 mg/dL (7-20) Creatinine 0.9 mg/dL (0.6-1.0) Estimated GFR (Cockcroft-Gault) 84.8 BUN/Creatinine Ratio 11 (6-20) Glucose Level 139 mg/dL (70-99) Calcium Level 10.1 mg/dL (8.5-10.1) Magnesium Level 1.6 mg/dL (1.8-2.4) Total Bilirubin 1.4 mg/dL (0.2-1.0) Aspartate Amino Transf (AST/SGOT) 40 U/L (15-37) Alanine Aminotransferase (ALT/SGPT) 39 U/L (14-59) Alkaline Phosphatase 116 U/L (46-116) Total Protein 8.8 g/dL (6.4-8.2) Albumin 3.9 g/dL (3.4-5.0) Albumin/Globulin Ratio 0.8 (1.0-1.7) Lipase 207 U/L (73-393) Ethyl Alcohol Level < 10 mg/dL (0-10) Urine Collection Type U cath Urine Color Mana Urine Clarity Cloudy Urine pH 5.0 (<5.0-8.0) Urine Specific [place] 1.025 (1.000-1.030) Urine Protein Negative mg/dL (NEG-TRACE) Urine Glucose (UA) Negative mg/dL (NEG) Urine Ketones (Stick) 15 mg/dL (NEG) Urine Blood Small (NEG) Urine Nitrite Negative (NEG) Urine Bilirubin Moderate (NEG) Urine Urobilinogen Dipstick 1.0 mg/dL (0.2 mg/dL) Urine Leukocyte Esterase Small (NEG) Urine RBC 1-2 /HPF (0-2) Urine WBC 5-10 /HPF (0-4) Urine Squamous Epithelial Cells Few /LPF Urine Amorphous Sediment Present /HPF Urine Bacteria Few /HPF (0-FEW) Urine Hyaline Casts Few /HPF Urine Mucus Mod /LPF Urine Test Negative (NEG) Urine Opiates Screen Neg (NEG) Urine Methadone Screen Neg (NEG) Urine Barbiturates Neg (NEG) Urine Phencyclidine Screen Neg (NEG) Urine Amphetamine/Methamphetamine Neg (NEG) Urine Benzodiazepines Screen Neg (NEG) Urine Cocaine Screen Neg (NEG) Urine Cannabinoids Screen Neg (NEG) Urine Ethyl Alcohol Neg (NEG) Laboratory Tests Test 01/27/20 11:57 01/27/20 12:10 White Blood Count 19.1 x10^3/uL (4.0-11.0) Red Blood Count 4.91 x10^6/uL (3.50-5.40) Hemoglobin 14.9 g/dL (12.0-15.5) Hematocrit 44.2 % (36.0-47.0) Mean Corpuscular Volume 90 fL (79-100) Mean Corpuscular Hemoglobin 30 pg (25-35) Mean Corpuscular Hemoglobin Concent 34 g/dL (31-37) Red Cell Distribution Width 13.4 % (11.5-14.5) Platelet Count 273 x10^3/uL (140-400) Neutrophils (%) (Auto) 77 % (31-73) Lymphocytes (%) (Auto) 13 % (24-48) Monocytes (%) (Auto) 10 % (0-9) Eosinophils (%) (Auto) 1 % (0-3) Basophils (%) (Auto) 0 % (0-3) Neutrophils # (Auto) 14.6 x10^3/uL (1.8-7.7) Lymphocytes # (Auto) 2.4 x10^3/uL (1.0-4.8) Monocytes # (Auto) 1.8 x10^3/uL (0.0-1.1) Eosinophils # (Auto) 0.1 x10^3/uL (0.0-0.7) Basophils # (Auto) 0.1 x10^3/uL (0.0-0.2) Segmented Neutrophils % 68 % (35-66) Lymphocytes % 20 % (24-48) Atypical Lymphocytes % (Manual) 3 % (0-0) Monocytes % 9 % (0-10) Platelet Estimate Adequate (ADEQUATE) Sodium Level 121 mmol/L (136-145) Potassium Level 1.8 mmol/L (3.5-5.1) Chloride Level 76 mmol/L (98-107) Carbon Dioxide Level 34 mmol/L (21-32) Anion Gap 11 (6-14) Blood Urea Nitrogen 10 mg/dL (7-20) Creatinine 0.9 mg/dL (0.6-1.0) Estimated GFR (Cockcroft-Gault) 84.8 BUN/Creatinine Ratio 11 (6-20) Glucose Level 139 mg/dL (70-99) Calcium Level 10.1 mg/dL (8.5-10.1) Magnesium Level 1.6 mg/dL (1.8-2.4) Total Bilirubin 1.4 mg/dL (0.2-1.0) Aspartate Amino Transf (AST/SGOT) 40 U/L (15-37) Alanine Aminotransferase (ALT/SGPT) 39 U/L (14-59) Alkaline Phosphatase 116 U/L (46-116) Total Protein 8.8 g/dL (6.4-8.2) Albumin 3.9 g/dL (3.4-5.0) Albumin/Globulin Ratio 0.8 (1.0-1.7) Lipase 207 U/L (73-393) Ethyl Alcohol Level < 10 mg/dL (0-10) Urine Collection Type U cath Urine Color Mana Urine Clarity Cloudy Urine pH 5.0 (<5.0-8.0) Urine Specific [place] 1.025 (1.000-1.030) Urine Protein Negative mg/dL (NEG-TRACE) Urine Glucose (UA) Negative mg/dL (NEG) Urine Ketones (Stick) 15 mg/dL (NEG) Urine Blood Small (NEG) Urine Nitrite Negative (NEG) Urine Bilirubin Moderate (NEG) Urine Urobilinogen Dipstick 1.0 mg/dL (0.2 mg/dL) Urine Leukocyte Esterase Small (NEG) Urine RBC 1-2 /HPF (0-2) Urine WBC 5-10 /HPF (0-4) Urine Squamous Epithelial Cells Few /LPF Urine Amorphous Sediment Present /HPF Urine Bacteria Few /HPF (0-FEW) Urine Hyaline Casts Few /HPF Urine Mucus Mod /LPF Urine Test Negative (NEG) Urine Opiates Screen Neg (NEG) Urine Methadone Screen Neg (NEG) Urine Barbiturates Neg (NEG) Urine Phencyclidine Screen Neg (NEG) Urine Amphetamine/Methamphetamine Neg (NEG) Urine Benzodiazepines Screen Neg (NEG) Urine Cocaine Screen Neg (NEG) Urine Cannabinoids Screen Neg (NEG) Urine Ethyl Alcohol Neg (NEG) VTE Prophylaxis Ordered VTE Prophylaxis Devices: No VTE Pharmacological Prophylaxi: Yes Assessment/Plan Assessment/Plan Patient with acute collitis and severe metabolic derangement. Admitt o ICU and continue levaquin and metronidazole. ICU electrolyte replacement protocol. Zofran prn. Consult to GI. NPO. Full code. Justicifation of Admission Dx: Justifications for Admission: Justification of Admission Dx: Yes CAROL AGUIRRE MD Jan 27, 2020 23:39
[2020-01-28] VITALS (19 sets, daily range): BP systolic 89–120; BP diastolic 49–82
[2020-01-28] MEDS: FAMOTIDINE 20 MG/2 ML VIAL IVP SCH ×2 (08:15→21:51)
[2020-01-28 08:26] LABS: BASO # 0.1 x10^3/uL (0.0-0.2); BASO % 1 % (0-3); EOS # 0.2 x10^3/uL (0.0-0.7); EOS % 2 % (0-3); HEMATOCRIT 39.8 % (36.0-47.0); HEMOGLOBIN 13.3 g/dL (12.0-15.5); LYMPH # 2.7 x10^3/uL (1.0-4.8); LYMPH % 24 % (24-48); MEAN CORPUSCULAR HEMOGLOBIN 31 pg (25-35); MEAN CORPUSCULAR HGB CONC 33 g/dL (31-37); MEAN CORPUSCULAR VOLUME 92 fL (79-100); MONO # 1.1 x10^3/uL (0.0-1.1); MONO % 9 % (0-9); NEUT # 7.3 x10^3/uL (1.8-7.7); NEUT % 64 % (31-73); PLATELET COUNT 227 x10^3/uL (140-400); RED BLOOD COUNT 4.32 x10^6/uL (3.50-5.40); RED CELL DISTRIBUTION WIDTH 13.8 % (11.5-14.5); WHITE BLOOD COUNT 11.3 x10^3/uL (4.0-11.0)
[2020-01-28 08:49] LABS: ALBUMIN 3.2 g/dL (3.4-5.0); ALBUMIN/GLOBULIN RATIO 0.8 (1.0-1.7); CALCIUM 8.9 mg/dL (8.5-10.1); CREATININE 0.9 mg/dL (0.6-1.0); GFR 84.8; TOTAL PROTEIN 7.3 g/dL (6.4-8.2)
[2020-01-28 08:53] LABS: POTASSIUM 2.3 mmol/L (3.5-5.1)
[2020-01-28] MEDS: POTASSIUM CHLORIDE 10MEQ 100 ML IV SCH ×6 (09:22→17:38)
[2020-01-28] MEDS ORDERED: MAGNESIUM SULFATE 2GM 50 ML IV ONE (10:00)
[2020-01-28 10:03] LABS: FREE T4 1.32 ng/dL (0.76-1.46); THYROID STIM HORMONE (TSH) 2.329 uIU/mL (0.358-3.74)
--- NOTE | 2020-01-28 10:07 | PDOC ---
PROGRESS NOTES Date of Service: DATE: 01/28/20 TIME: 09:53 Chief Complaint Chief Complaint Acute colitis Severe dehydration Poor oral intake Severe hyponatremia secondary to low effective circulatory volume Severe electrolyte derangement including hypokalemia and hypomagnesemia COVID 19 under investigation Plan: replace electrolytes follow recommendations from GI independent marketing consultant continue with antibiotics for colitis reassess in the am History of Present Illness History of Present Illness Patient admitted for severe abdominal pain and electrolyte disturbances 01/28/2020 No acute events reported overnight, case discussed with nursing staff patient in no acute distress no complaints during my visit patient only complaining of burning sensation while replacing her potassium plan of care has been explained in detail all of her concerns were addressed to the best of my abilities Vitals Vitals Vital Signs Date Time Temp Pulse Resp B/P (MAP) Pulse Ox O2 Delivery O2 Flow Rate FiO2 01/28/20 09:00 63 26 93/64 (74) 99 Room Air 01/28/20 08:00 97.9 97.9 Physical Exam General: Alert, Oriented X3, mild distress Abdomen: Other (Genertalized abdominal tenderness) Extremities: No clubbing, No cyanosis, No edema, Normal pulses, No tenderness/swelling Skin: No rashes, No breakdown, No significant lesion Labs LABS Laboratory Tests Test 01/27/20 11:57 01/27/20 12:10 01/28/20 07:58 White Blood Count 19.1 x10^3/uL (4.0-11.0) 11.3 x10^3/uL (4.0-11.0) Red Blood Count 4.91 x10^6/uL (3.50-5.40) 4.32 x10^6/uL (3.50-5.40) Hemoglobin 14.9 g/dL (12.0-15.5) 13.3 g/dL (12.0-15.5) Hematocrit 44.2 % (36.0-47.0) 39.8 % (36.0-47.0) Mean Corpuscular Volume 90 fL (79-100) 92 fL (79-100) Mean Corpuscular Hemoglobin 30 pg (25-35) 31 pg (25-35) Mean Corpuscular Hemoglobin Concent 34 g/dL (31-37) 33 g/dL (31-37) Red Cell Distribution Width 13.4 % (11.5-14.5) 13.8 % (11.5-14.5) Platelet Count 273 x10^3/uL (140-400) 227 x10^3/uL (140-400) Neutrophils (%) (Auto) 77 % (31-73) 64 % (31-73) Lymphocytes (%) (Auto) 13 % (24-48) 24 % (24-48) Monocytes (%) (Auto) 10 % (0-9) 9 % (0-9) Eosinophils (%) (Auto) 1 % (0-3) 2 % (0-3) Basophils (%) (Auto) 0 % (0-3) 1 % (0-3) Neutrophils # (Auto) 14.6 x10^3/uL (1.8-7.7) 7.3 x10^3/uL (1.8-7.7) Lymphocytes # (Auto) 2.4 x10^3/uL (1.0-4.8) 2.7 x10^3/uL (1.0-4.8) Monocytes # (Auto) 1.8 x10^3/uL (0.0-1.1) 1.1 x10^3/uL (0.0-1.1) Eosinophils # (Auto) 0.1 x10^3/uL (0.0-0.7) 0.2 x10^3/uL (0.0-0.7) Basophils # (Auto) 0.1 x10^3/uL (0.0-0.2) 0.1 x10^3/uL (0.0-0.2) Segmented Neutrophils % 68 % (35-66) Lymphocytes % 20 % (24-48) Atypical Lymphocytes % (Manual) 3 % (0-0) Monocytes % 9 % (0-10) Platelet Estimate Adequate (ADEQUATE) Sodium Level 121 mmol/L (136-145) 133 mmol/L (136-145) Potassium Level 1.8 mmol/L (3.5-5.1) 2.3 mmol/L (3.5-5.1) Chloride Level 76 mmol/L (98-107) 90 mmol/L (98-107) Carbon Dioxide Level 34 mmol/L (21-32) 36 mmol/L (21-32) Anion Gap 11 (6-14) 7 (6-14) Blood Urea Nitrogen 10 mg/dL (7-20) 8 mg/dL (7-20) Creatinine 0.9 mg/dL (0.6-1.0) 0.9 mg/dL (0.6-1.0) Estimated GFR (Cockcroft-Gault) 84.8 84.8 BUN/Creatinine Ratio 11 (6-20) 9 (6-20) Glucose Level 139 mg/dL (70-99) 102 mg/dL (70-99) Calcium Level 10.1 mg/dL (8.5-10.1) 8.9 mg/dL (8.5-10.1) Magnesium Level 1.6 mg/dL (1.8-2.4) Total Bilirubin 1.4 mg/dL (0.2-1.0) 1.0 mg/dL (0.2-1.0) Aspartate Amino Transf (AST/SGOT) 40 U/L (15-37) 39 U/L (15-37) Alanine Aminotransferase (ALT/SGPT) 39 U/L (14-59) 30 U/L (14-59) Alkaline Phosphatase 116 U/L (46-116) 97 U/L (46-116) Total Protein 8.8 g/dL (6.4-8.2) 7.3 g/dL (6.4-8.2) Albumin 3.9 g/dL (3.4-5.0) 3.2 g/dL (3.4-5.0) Albumin/Globulin Ratio 0.8 (1.0-1.7) 0.8 (1.0-1.7) Lipase 207 U/L (73-393) Ethyl Alcohol Level < 10 mg/dL (0-10) Urine Collection Type U cath Urine Color Mana Urine Clarity Cloudy Urine pH 5.0 (<5.0-8.0) Urine Specific [place] 1.025 (1.000-1.030) Urine Protein Negative mg/dL (NEG-TRACE) Urine Glucose (UA) Negative mg/dL (NEG) Urine Ketones (Stick) 15 mg/dL (NEG) Urine Blood Small (NEG) Urine Nitrite Negative (NEG) Urine Bilirubin Moderate (NEG) Urine Urobilinogen Dipstick 1.0 mg/dL (0.2 mg/dL) Urine Leukocyte Esterase Small (NEG) Urine RBC 1-2 /HPF (0-2) Urine WBC 5-10 /HPF (0-4) Urine Squamous Epithelial Cells Few /LPF Urine Amorphous Sediment Present /HPF Urine Bacteria Few /HPF (0-FEW) Urine Hyaline Casts Few /HPF Urine Mucus Mod /LPF Urine Test Negative (NEG) Urine Opiates Screen Neg (NEG) Urine Methadone Screen Neg (NEG) Urine Barbiturates Neg (NEG) Urine Phencyclidine Screen Neg (NEG) Urine Amphetamine/Methamphetamine Neg (NEG) Urine Benzodiazepines Screen Neg (NEG) Urine Cocaine Screen Neg (NEG) Urine Cannabinoids Screen Neg (NEG) Urine Ethyl Alcohol Neg (NEG) Assessment and Plan Assessmemt and Plan Problems Medical Problems: (1) Cellulitis of umbilicus Status: Acute (2) Colitis Status: Acute (3) Hypokalemia Status: Acute (4) Hyponatremia Status: Acute (5) Person under investigation for COVID-19 Status: Acute Comment Review of Relevant I have reviewed the following items laurie (where applicable) has been applied. Labs Laboratory Tests Test 01/27/20 11:57 01/27/20 12:10 01/28/20 07:58 White Blood Count 19.1 x10^3/uL (4.0-11.0) 11.3 x10^3/uL (4.0-11.0) Red Blood Count 4.91 x10^6/uL (3.50-5.40) 4.32 x10^6/uL (3.50-5.40) Hemoglobin 14.9 g/dL (12.0-15.5) 13.3 g/dL (12.0-15.5) Hematocrit 44.2 % (36.0-47.0) 39.8 % (36.0-47.0) Mean Corpuscular Volume 90 fL (79-100) 92 fL (79-100) Mean Corpuscular Hemoglobin 30 pg (25-35) 31 pg (25-35) Mean Corpuscular Hemoglobin Concent 34 g/dL (31-37) 33 g/dL (31-37) Red Cell Distribution Width 13.4 % (11.5-14.5) 13.8 % (11.5-14.5) Platelet Count 273 x10^3/uL (140-400) 227 x10^3/uL (140-400) Neutrophils (%) (Auto) 77 % (31-73) 64 % (31-73) Lymphocytes (%) (Auto) 13 % (24-48) 24 % (24-48) Monocytes (%) (Auto) 10 % (0-9) 9 % (0-9) Eosinophils (%) (Auto) 1 % (0-3) 2 % (0-3) Basophils (%) (Auto) 0 % (0-3) 1 % (0-3) Neutrophils # (Auto) 14.6 x10^3/uL (1.8-7.7) 7.3 x10^3/uL (1.8-7.7) Lymphocytes # (Auto) 2.4 x10^3/uL (1.0-4.8) 2.7 x10^3/uL (1.0-4.8) Monocytes # (Auto) 1.8 x10^3/uL (0.0-1.1) 1.1 x10^3/uL (0.0-1.1) Eosinophils # (Auto) 0.1 x10^3/uL (0.0-0.7) 0.2 x10^3/uL (0.0-0.7) Basophils # (Auto) 0.1 x10^3/uL (0.0-0.2) 0.1 x10^3/uL (0.0-0.2) Segmented Neutrophils % 68 % (35-66) Lymphocytes % 20 % (24-48) Atypical Lymphocytes % (Manual) 3 % (0-0) Monocytes % 9 % (0-10) Platelet Estimate Adequate (ADEQUATE) Sodium Level 121 mmol/L (136-145) 133 mmol/L (136-145) Potassium Level 1.8 mmol/L (3.5-5.1) 2.3 mmol/L (3.5-5.1) Chloride Level 76 mmol/L (98-107) 90 mmol/L (98-107) Carbon Dioxide Level 34 mmol/L (21-32) 36 mmol/L (21-32) Anion Gap 11 (6-14) 7 (6-14) Blood Urea Nitrogen 10 mg/dL (7-20) 8 mg/dL (7-20) Creatinine 0.9 mg/dL (0.6-1.0) 0.9 mg/dL (0.6-1.0) Estimated GFR (Cockcroft-Gault) 84.8 84.8 BUN/Creatinine Ratio 11 (6-20) 9 (6-20) Glucose Level 139 mg/dL (70-99) 102 mg/dL (70-99) Calcium Level 10.1 mg/dL (8.5-10.1) 8.9 mg/dL (8.5-10.1) Magnesium Level 1.6 mg/dL (1.8-2.4) Total Bilirubin 1.4 mg/dL (0.2-1.0) 1.0 mg/dL (0.2-1.0) Aspartate Amino Transf (AST/SGOT) 40 U/L (15-37) 39 U/L (15-37) Alanine Aminotransferase (ALT/SGPT) 39 U/L (14-59) 30 U/L (14-59) Alkaline Phosphatase 116 U/L (46-116) 97 U/L (46-116) Total Protein 8.8 g/dL (6.4-8.2) 7.3 g/dL (6.4-8.2) Albumin 3.9 g/dL (3.4-5.0) 3.2 g/dL (3.4-5.0) Albumin/Globulin Ratio 0.8 (1.0-1.7) 0.8 (1.0-1.7) Lipase 207 U/L (73-393) Ethyl Alcohol Level < 10 mg/dL (0-10) Urine Collection Type U cath Urine Color Mana Urine Clarity Cloudy Urine pH 5.0 (<5.0-8.0) Urine Specific [place] 1.025 (1.000-1.030) Urine Protein Negative mg/dL (NEG-TRACE) Urine Glucose (UA) Negative mg/dL (NEG) Urine Ketones (Stick) 15 mg/dL (NEG) Urine Blood Small (NEG) Urine Nitrite Negative (NEG) Urine Bilirubin Moderate (NEG) Urine Urobilinogen Dipstick 1.0 mg/dL (0.2 mg/dL) Urine Leukocyte Esterase Small (NEG) Urine RBC 1-2 /HPF (0-2) Urine WBC 5-10 /HPF (0-4) Urine Squamous Epithelial Cells Few /LPF Urine Amorphous Sediment Present /HPF Urine Bacteria Few /HPF (0-FEW) Urine Hyaline Casts Few /HPF Urine Mucus Mod /LPF Urine Test Negative (NEG) Urine Opiates Screen Neg (NEG) Urine Methadone Screen Neg (NEG) Urine Barbiturates Neg (NEG) Urine Phencyclidine Screen Neg (NEG) Urine Amphetamine/Methamphetamine Neg (NEG) Urine Benzodiazepines Screen Neg (NEG) Urine Cocaine Screen Neg (NEG) Urine Cannabinoids Screen Neg (NEG) Urine Ethyl Alcohol Neg (NEG) Laboratory Tests Test 01/27/20 11:57 01/27/20 12:10 01/28/20 07:58 White Blood Count 19.1 x10^3/uL (4.0-11.0) 11.3 x10^3/uL (4.0-11.0) Red Blood Count 4.91 x10^6/uL (3.50-5.40) 4.32 x10^6/uL (3.50-5.40) Hemoglobin 14.9 g/dL (12.0-15.5) 13.3 g/dL (12.0-15.5) Hematocrit 44.2 % (36.0-47.0) 39.8 % (36.0-47.0) Mean Corpuscular Volume 90 fL (79-100) 92 fL (79-100) Mean Corpuscular Hemoglobin 30 pg (25-35) 31 pg (25-35) Mean Corpuscular Hemoglobin Concent 34 g/dL (31-37) 33 g/dL (31-37) Red Cell Distribution Width 13.4 % (11.5-14.5) 13.8 % (11.5-14.5) Platelet Count 273 x10^3/uL (140-400) 227 x10^3/uL (140-400) Neutrophils (%) (Auto) 77 % (31-73) 64 % (31-73) Lymphocytes (%) (Auto) 13 % (24-48) 24 % (24-48) Monocytes (%) (Auto) 10 % (0-9) 9 % (0-9) Eosinophils (%) (Auto) 1 % (0-3) 2 % (0-3) Basophils (%) (Auto) 0 % (0-3) 1 % (0-3) Neutrophils # (Auto) 14.6 x10^3/uL (1.8-7.7) 7.3 x10^3/uL (1.8-7.7) Lymphocytes # (Auto) 2.4 x10^3/uL (1.0-4.8) 2.7 x10^3/uL (1.0-4.8) Monocytes # (Auto) 1.8 x10^3/uL (0.0-1.1) 1.1 x10^3/uL (0.0-1.1) Eosinophils # (Auto) 0.1 x10^3/uL (0.0-0.7) 0.2 x10^3/uL (0.0-0.7) Basophils # (Auto) 0.1 x10^3/uL (0.0-0.2) 0.1 x10^3/uL (0.0-0.2) Segmented Neutrophils % 68 % (35-66) Lymphocytes % 20 % (24-48) Atypical Lymphocytes % (Manual) 3 % (0-0) Monocytes % 9 % (0-10) Platelet Estimate Adequate (ADEQUATE) Sodium Level 121 mmol/L (136-145) 133 mmol/L (136-145) Potassium Level 1.8 mmol/L (3.5-5.1) 2.3 mmol/L (3.5-5.1) Chloride Level 76 mmol/L (98-107) 90 mmol/L (98-107) Carbon Dioxide Level 34 mmol/L (21-32) 36 mmol/L (21-32) Anion Gap 11 (6-14) 7 (6-14) Blood Urea Nitrogen 10 mg/dL (7-20) 8 mg/dL (7-20) Creatinine 0.9 mg/dL (0.6-1.0) 0.9 mg/dL (0.6-1.0) Estimated GFR (Cockcroft-Gault) 84.8 84.8 BUN/Creatinine Ratio 11 (6-20) 9 (6-20) Glucose Level 139 mg/dL (70-99) 102 mg/dL (70-99) Calcium Level 10.1 mg/dL (8.5-10.1) 8.9 mg/dL (8.5-10.1) Magnesium Level 1.6 mg/dL (1.8-2.4) Total Bilirubin 1.4 mg/dL (0.2-1.0) 1.0 mg/dL (0.2-1.0) Aspartate Amino Transf (AST/SGOT) 40 U/L (15-37) 39 U/L (15-37) Alanine Aminotransferase (ALT/SGPT) 39 U/L (14-59) 30 U/L (14-59) Alkaline Phosphatase 116 U/L (46-116) 97 U/L (46-116) Total Protein 8.8 g/dL (6.4-8.2) 7.3 g/dL (6.4-8.2) Albumin 3.9 g/dL (3.4-5.0) 3.2 g/dL (3.4-5.0) Albumin/Globulin Ratio 0.8 (1.0-1.7) 0.8 (1.0-1.7) Lipase 207 U/L (73-393) Ethyl Alcohol Level < 10 mg/dL (0-10) Urine Collection Type U cath Urine Color Mana Urine Clarity Cloudy Urine pH 5.0 (<5.0-8.0) Urine Specific [place] 1.025 (1.000-1.030) Urine Protein Negative mg/dL (NEG-TRACE) Urine Glucose (UA) Negative mg/dL (NEG) Urine Ketones (Stick) 15 mg/dL (NEG) Urine Blood Small (NEG) Urine Nitrite Negative (NEG) Urine Bilirubin Moderate (NEG) Urine Urobilinogen Dipstick 1.0 mg/dL (0.2 mg/dL) Urine Leukocyte Esterase Small (NEG) Urine RBC 1-2 /HPF (0-2) Urine WBC 5-10 /HPF (0-4) Urine Squamous Epithelial Cells Few /LPF Urine Amorphous Sediment Present /HPF Urine Bacteria Few /HPF (0-FEW) Urine Hyaline Casts Few /HPF Urine Mucus Mod /LPF Urine Test Negative (NEG) Urine Opiates Screen Neg (NEG) Urine Methadone Screen Neg (NEG) Urine Barbiturates Neg (NEG) Urine Phencyclidine Screen Neg (NEG) Urine Amphetamine/Methamphetamine Neg (NEG) Urine Benzodiazepines Screen Neg (NEG) Urine Cocaine Screen Neg (NEG) Urine Cannabinoids Screen Neg (NEG) Urine Ethyl Alcohol Neg (NEG) Medications Current Medications Sodium Chloride 1,000 ml @ 1,000 mls/hr 1X ONCE IV Last administered on 01/27/20at 12:05; Start 01/27/20 at 12:00; Stop 01/27/20 at 12:59; Status DC Ondansetron HCl (Zofran) 4 mg 1X ONCE IVP Last administered on 01/27/20at 12:05; Start 01/27/20 at 12:00; Stop 01/27/20 at 12:01; Status DC Famotidine (Pepcid Vial) 20 mg 1X ONCE IVP Last administered on 01/27/20at 12:05; Start 01/27/20 at 12:00; Stop 01/27/20 at 12:01; Status DC Iohexol (Omnipaque 300 Mg/ml) 75 ml 1X ONCE IV Last administered on 01/27/20at 14:35; Start 01/27/20 at 13:15; Stop 01/27/20 at 13:17; Status DC Potassium Chloride (Klor-Con) 40 meq 1X ONCE PO Last administered on 01/27/20at 13:52; Start 01/27/20 at 13:15; Stop 01/27/20 at 13:17; Status DC Iohexol (Omnipaque 300 Mg/ml) 75 ml 1X ONCE IV ; Start 01/27/20 at 14:30; Stop 01/27/20 at 14:31; Status DC Info (CONTRAST GIVEN -- Rx MONITORING) 1 each PRN DAILY PRN MC SEE COMMENTS; Start 01/27/20 at 14:30; Stop 01/29/20 at 14:29 Ondansetron HCl (Zofran) 4 mg PRN Q8HRS PRN IV NAUSEA/VOMITING Last administered on 01/28/20at 04:19; Start 01/27/20 at 15:30; Stop 01/28/20 at 15:29 Morphine Sulfate (Morphine Sulfate) 2 mg PRN Q2HR PRN IV PAIN Last administered on 01/27/20at 20:24; Start 01/27/20 at 15:30; Stop 01/28/20 at 15:29 Ciprofloxacin/ Dextrose 200 ml @ 200 mls/hr 1X ONCE IV ; Start 01/27/20 at 15:30; Stop 01/27/20 at 16:29; Status DC Metronidazole 100 ml @ 100 mls/hr Q8HRS IV Last administered on 01/28/20at 05:43; Start 01/27/20 at 22:00 Potassium Chloride/Sodium Chloride 1,000 ml @ 75 mls/hr [id number] ONCE IV Last administered on 01/27/20at 19:48; Start 01/27/20 at 16:00; Stop 01/28/20 at 05:19; Status DC Magnesium Sulfate 50 ml @ 25 mls/hr 1X ONCE IV Last administered on 01/27/20at 16:54; Start 01/27/20 at 15:30; Stop 01/27/20 at 17:29; Status DC Metronidazole 100 ml @ 100 mls/hr 1X ONCE IV Last administered on 01/27/20at 15:55; Start 01/27/20 at 15:45; Stop 01/27/20 at 16:44; Status DC Famotidine (Pepcid Vial) 20 mg BID IVP Last administered on 01/28/20at 08:15; Start 01/27/20 at 21:00 Levofloxacin/ Dextrose 100 ml @ 100 mls/hr Q24H IV Last administered on 01/27/20at 21:42; Start 01/27/20 at 19:00 Potassium Chloride/Water 100 ml @ 100 mls/hr Q1H IV Last administered on 01/28/20at 09:22; Start 01/28/20 at 10:00; Stop 01/28/20 at 21:59 Magnesium Sulfate 50 ml @ 25 mls/hr 1X ONCE IV ; Start 01/28/20 at 10:00; Stop 01/28/20 at 11:59 Vitals/I & O Vital Sign - Last 24 Hours 01/27/20 01/27/20 01/27/20 01/27/20 11:31 12:05 12:35 13:05 Temp 98.3 98.3 Pulse 94 90 82 72 Resp 16 16 16 16 B/P (MAP) 154/88 (110) 129/84 (99) 120/82 (95) 123/83 (96) Pulse Ox 99 100 100 98 O2 Delivery Room Air 01/27/20 01/27/20 01/27/20 01/27/20 13:35 14:05 15:17 15:47 Pulse 68 86 74 86 Resp 16 17 18 18 B/P (MAP) 129/87 (101) 167/86 (113) 123/76 (92) 120/79 (93) Pulse Ox 96 100 100 100 O2 Delivery Room Air Room Air Room Air Room Air 01/27/20 01/27/20 01/27/20 01/27/20 16:17 16:47 17:17 17:47 Pulse 74 68 72 70 Resp 16 18 18 16 B/P (MAP) 116/69 (85) 120/78 (92) 116/79 (91) 112/70 (84) Pulse Ox 99 97 98 96 O2 Delivery Room Air Room Air Room Air Room Air 01/27/20 01/27/20 01/27/20 01/27/20 18:17 19:00 20:00 20:00 Temp 98.3 98.3 Pulse 74 85 74 Resp 17 22 22 B/P (MAP) 105/62 (76) 102/71 (81) 107/71 (83) Pulse Ox 98 100 99 O2 Delivery Room Air Room Air Room Air Room Air 01/27/20 01/27/20 01/27/20 01/28/20 21:00 22:00 23:00 00:00 Temp 98.0 98.0 Pulse 76 76 68 68 Resp 22 27 28 24 B/P (MAP) 100/72 (81) 116/87 (97) 116/64 (81) 104/66 (79) Pulse Ox 97 100 98 99 O2 Delivery Room Air Room Air Room Air Room Air 01/28/20 01/28/20 01/28/20 01/28/20 00:00 01:00 02:00 03:00 Pulse 69 68 62 Resp 21 25 16 B/P (MAP) 119/74 (89) 106/69 (81) 99/58 (72) Pulse Ox 100 99 99 O2 Delivery Room Air Room Air Room Air Room Air 01/28/20 01/28/20 01/28/20 01/28/20 04:00 04:00 05:00 06:00 Temp 97.9 97.9 Pulse 64 55 64 Resp 14 16 16 B/P (MAP) 117/80 (92) 104/61 (75) 99/75 (83) Pulse Ox 97 99 100 O2 Delivery Room Air Room Air Room Air Room Air 8/20/20 8/20/20 8/20/20 8/20/20 07:00 08:00 08:00 09:00 Temp 97.9 97.9 Pulse 71 72 63 Resp 22 26 26 B/P (MAP) 92/64 (73) 97/62 (74) 93/64 (74) Pulse Ox 100 98 99 O2 Delivery Room Air Room Air Room Air Room Air Intake and Output 01/27/20 01/27/20 01/28/20 15:00 23:00 07:00 Intake Total 1000 ml 200 ml 591.8 ml Balance 1000 ml 200 ml 591.8 ml Justicifation of Admission Dx: Justifications for Admission: Justification of Admission Dx: Yes LONI CASTANO MD Jan 28, 2020 10:07
--- NOTE | 2020-01-28 11:08 | PDOC ---
Date of Service: DATE: 01/28/20 TIME: 11:05 Subjective: Subjective: Nausea but wants some ice and liquids. Pelvic "cramp" overnight but no abdominal pain or stools. Objective: Vital Signs: Vital Signs Date Time Temp Pulse Resp B/P (MAP) Pulse Ox O2 Delivery O2 Flow Rate FiO2 01/28/20 10:00 57 30 96/67 (77) 99 Room Air 01/28/20 08:00 97.9 97.9 Labs: Laboratory Tests Test 01/27/20 11:57 01/27/20 12:10 01/28/20 07:58 White Blood Count 19.1 x10^3/uL 11.3 x10^3/uL Red Blood Count 4.91 x10^6/uL 4.32 x10^6/uL Hemoglobin 14.9 g/dL 13.3 g/dL Hematocrit 44.2 % 39.8 % Mean Corpuscular Volume 90 fL 92 fL Mean Corpuscular Hemoglobin 30 pg 31 pg Mean Corpuscular Hemoglobin Concent 34 g/dL 33 g/dL Red Cell Distribution Width 13.4 % 13.8 % Platelet Count 273 x10^3/uL 227 x10^3/uL Neutrophils (%) (Auto) 77 % 64 % Lymphocytes (%) (Auto) 13 % 24 % Monocytes (%) (Auto) 10 % 9 % Eosinophils (%) (Auto) 1 % 2 % Basophils (%) (Auto) 0 % 1 % Neutrophils # (Auto) 14.6 x10^3/uL 7.3 x10^3/uL Lymphocytes # (Auto) 2.4 x10^3/uL 2.7 x10^3/uL Monocytes # (Auto) 1.8 x10^3/uL 1.1 x10^3/uL Eosinophils # (Auto) 0.1 x10^3/uL 0.2 x10^3/uL Basophils # (Auto) 0.1 x10^3/uL 0.1 x10^3/uL Segmented Neutrophils % 68 % Lymphocytes % 20 % Atypical Lymphocytes % (Manual) 3 % Monocytes % 9 % Platelet Estimate Adequate Sodium Level 121 mmol/L 133 mmol/L Potassium Level 1.8 mmol/L 2.3 mmol/L Chloride Level 76 mmol/L 90 mmol/L Carbon Dioxide Level 34 mmol/L 36 mmol/L Anion Gap 11 7 Blood Urea Nitrogen 10 mg/dL 8 mg/dL Creatinine 0.9 mg/dL 0.9 mg/dL Estimated GFR (Cockcroft-Gault) 84.8 84.8 BUN/Creatinine Ratio 11 9 Glucose Level 139 mg/dL 102 mg/dL Calcium Level 10.1 mg/dL 8.9 mg/dL Magnesium Level 1.6 mg/dL Total Bilirubin 1.4 mg/dL 1.0 mg/dL Aspartate Amino Transf (AST/SGOT) 40 U/L 39 U/L Alanine Aminotransferase (ALT/SGPT) 39 U/L 30 U/L Alkaline Phosphatase 116 U/L 97 U/L Total Protein 8.8 g/dL 7.3 g/dL Albumin 3.9 g/dL 3.2 g/dL Albumin/Globulin Ratio 0.8 0.8 Lipase 207 U/L Ethyl Alcohol Level < 10 mg/dL Urine Collection Type U cath Urine Color Mana Urine Clarity Cloudy Urine pH 5.0 Urine Specific [place] 1.025 Urine Protein Negative mg/dL Urine Glucose (UA) Negative mg/dL Urine Ketones (Stick) 15 mg/dL Urine Blood Small Urine Nitrite Negative Urine Bilirubin Moderate Urine Urobilinogen Dipstick 1.0 mg/dL Urine Leukocyte Esterase Small Urine RBC 1-2 /HPF Urine WBC 5-10 /HPF Urine Squamous Epithelial Cells Few /LPF Urine Amorphous Sediment Present /HPF Urine Bacteria Few /HPF Urine Hyaline Casts Few /HPF Urine Mucus Mod /LPF Urine Test Negative Urine Opiates Screen Neg Urine Methadone Screen Neg Urine Barbiturates Neg Urine Phencyclidine Screen Neg Urine Amphetamine/Methamphetamine Neg Urine Benzodiazepines Screen Neg Urine Cocaine Screen Neg Urine Cannabinoids Screen Neg Urine Ethyl Alcohol Neg Thyroid Stimulating Hormone (TSH) 2.329 uIU/mL Free Thyroxine 1.32 ng/dL PE: GEN: NAD LUNGS: CTAB HEART: RRR ABD: NABS, S/ND/NT NEURO/PSYCH: A & O 3 A/P: Nausea Leukocytosis, hypokalemia, hyponatremia, mildly elevated bili and AST - all better today Abnormal CT - right-sided/transverse colitis, possible gastritis - denies abd pain, diarrhea, and bleeding - on IV atbx R/o COVID-19 -- Okay for clears, ADAT. Change to PO acid-paraprofessional education assistant as able. Outpt 'scopes. Justicifation of Admission Dx: Justifications for Admission: Justification of Admission Dx: Yes RODRIGUEZ CARVER Jan 28, 2020 11:08
[2020-01-28 12:47] LABS: CALCIUM 9.2 mg/dL (8.5-10.1); CREATININE 0.8 mg/dL (0.6-1.0); GFR 97.1
[2020-01-28 12:51] LABS: POTASSIUM 2.9 mmol/L (3.5-5.1)
--- NOTE | 2020-01-28 16:27 | NUR ---
SS following for discharge planning. SS reviewed pt chart and discussed with pt RN. Pt is from home with spouse and is currently on room air. Pt is self pay. Pt on clear liquid diet. COVID19 negative. SS will continue to follow for discharge planning.
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
[2020-01-28] MEDS ORDERED: POTASSIUM CHLORIDE 10 MEQ TABLET.ER. PO ONE (21:30)
[2020-01-29 02:32] VITALS: BP 102/65
[2020-01-29 05:35] LABS: CALCIUM 9.2 mg/dL (8.5-10.1); CREATININE 0.9 mg/dL (0.6-1.0); GFR 84.8; MAGNESIUM 2.3 mg/dL (1.8-2.4); POTASSIUM 3.1 mmol/L (3.5-5.1)
--- NOTE | 2020-01-29 06:31 | NUR ---
Patient is complaining of nausea. RN paged Dr Hicks to obtain order for Zofran. Order given for Zofran 4mg IV Q4prn for nausea.
[2020-01-29 07:00] VITALS: BP 112/69
[2020-01-29] MEDS: ONDANSETRON PF 4 MG/2 ML VIAL. IVP PRN ×4 (07:05→22:06)
[2020-01-29] MEDS: FAMOTIDINE 20 MG/2 ML VIAL IVP SCH (08:05)
--- NOTE | 2020-01-29 09:57 | PDOC ---
Date of Service: DATE: 01/29/20 TIME: 09:54 Subjective: Subjective: Had some nausea this morning but says much better overall. No pain. "Explosive" diarrhea x 2 overnight. Objective: Vital Signs: Vital Signs Date Time Temp Pulse Resp B/P (MAP) Pulse Ox O2 Delivery O2 Flow Rate FiO2 01/29/20 08:00 Room Air 01/29/20 07:00 97.7 65 20 112/69 (83) 98 97.7 Labs: Laboratory Tests Test 01/28/20 12:30 01/29/20 04:30 Sodium Level 133 mmol/L 136 mmol/L Potassium Level 2.9 mmol/L 3.1 mmol/L Chloride Level 93 mmol/L 98 mmol/L Carbon Dioxide Level 34 mmol/L 29 mmol/L Anion Gap 6 9 Blood Urea Nitrogen 7 mg/dL 6 mg/dL Creatinine 0.8 mg/dL 0.9 mg/dL Estimated GFR (Cockcroft-Gault) 97.1 84.8 Glucose Level 99 mg/dL 101 mg/dL Calcium Level 9.2 mg/dL 9.2 mg/dL Magnesium Level 2.3 mg/dL PE: GEN: NAD LUNGS: CTAB HEART: RRR ABD: NABS, S/ND/NT NEURO/PSYCH: A & O 3 A/P: Nausea - better Diarrhea - occurred overnight Abnormal CT - right-sided/transverse colitis, possible gastritis Hypokalemia - better COVID negative -- Nausea improving. ADAT - d/w pt and nurse - she'd like to see a menu. Stool studies. Justicifation of Admission Dx: Justifications for Admission: Justification of Admission Dx: Yes RODRIGUEZ CARVER Jan 29, 2020 09:57
[2020-01-29 11:00] VITALS: BP 104/64
--- NOTE | 2020-01-29 11:22 | NUR ---
SS following up with discharge planning. SS reviewed pt chart and discussed with pt RN. Pt is currently on room air. Pt on IV Levofloxacin. Pt advancing diet but having nausea today. Pt is self pay. Discharge plan is to home when medically ready. SS will continue to follow for discharge planning.
[2020-01-29] MEDS ORDERED: POTASSIUM BICARB 20 MEQ EFFERVESCENT TABLET. FT PRN (13:45)
[2020-01-29] MEDS ORDERED: POTASSIUM CHLORIDE 10MEQ 100 ML IV PRN ×2 (13:45)
[2020-01-29] MEDS ORDERED: POTASSIUM CHLORIDE 20 MEQ TABLET.ER. PO PRN (13:45)
[2020-01-29] MEDS ORDERED: MAGNESIUM SULFATE 2GM 50 ML IV PRN (13:45)
[2020-01-29] MEDS ORDERED: POTASSIUM BICARB 20 MEQ EFFERVESCENT TABLET. PO PRN (13:45)
--- NOTE | 2020-01-29 13:52 | PDOC ---
PROGRESS NOTES Date of Service: DATE: 01/29/20 TIME: 13:51 Chief Complaint Chief Complaint Acute colitis Severe dehydration Poor oral intake Severe hyponatremia secondary to low effective circulatory volume Severe electrolyte derangement including hypokalemia and hypomagnesemia COVID 19 under investigation Plan: replace electrolytes follow recommendations from GI independent beauty consultant continue with antibiotics for colitis follow stool studies reassess in the am History of Present Illness History of Present Illness Patient admitted for severe abdominal pain and electrolyte disturbances 01/28/2020 No acute events reported overnight, case discussed with nursing staff patient in no acute distress no complaints during my visit patient only complaining of burning sensation while replacing her potassium plan of care has been explained in detail all of her concerns were addressed to the best of my abilities 01/29/2020 Patient with 2 events of diarrhea earlier in the day. Patient is still having hypokalemia most likely secondary to the bowel movements. Nauseous at the time of my visit in invisible acute distress due to the symptoms reassurance has been provided all of her concerns addressed to the best of my abilities GI independent beauty consultant recommendations noted and greatly appreciated Vitals Vitals Vital Signs Date Time Temp Pulse Resp B/P (MAP) Pulse Ox O2 Delivery O2 Flow Rate FiO2 01/29/20 11:00 97.6 70 20 104/64 (77) 99 Room Air 97.6 Physical Exam General: Alert, Oriented X3, mild distress Abdomen: Other (Genertalized abdominal tenderness) Extremities: No clubbing, No cyanosis, No edema, Normal pulses, No tenderness/swelling Skin: No rashes, No breakdown, No significant lesion Labs LABS Laboratory Tests Test 01/29/20 04:30 Sodium Level 136 mmol/L (136-145) Potassium Level 3.1 mmol/L (3.5-5.1) Chloride Level 98 mmol/L (98-107) Carbon Dioxide Level 29 mmol/L (21-32) Anion Gap 9 (6-14) Blood Urea Nitrogen 6 mg/dL (7-20) Creatinine 0.9 mg/dL (0.6-1.0) Estimated GFR (Cockcroft-Gault) 84.8 Glucose Level 101 mg/dL (70-99) Calcium Level 9.2 mg/dL (8.5-10.1) Magnesium Level 2.3 mg/dL (1.8-2.4) Assessment and Plan Assessmemt and Plan Problems Medical Problems: (1) Cellulitis of umbilicus Status: Acute (2) Colitis Status: Acute (3) Hypokalemia Status: Acute (4) Hyponatremia Status: Acute (5) Person under investigation for COVID-19 Status: Acute Comment Review of Relevant I have reviewed the following items laurie (where applicable) has been applied. Labs Laboratory Tests Test 01/28/20 07:58 01/28/20 12:15 01/28/20 12:30 01/29/20 04:30 White Blood Count 11.3 x10^3/uL (4.0-11.0) Red Blood Count 4.32 x10^6/uL (3.50-5.40) Hemoglobin 13.3 g/dL (12.0-15.5) Hematocrit 39.8 % (36.0-47.0) Mean Corpuscular Volume 92 fL (79-100) Mean Corpuscular Hemoglobin 31 pg (25-35) Mean Corpuscular Hemoglobin Concent 33 g/dL (31-37) Red Cell Distribution Width 13.8 % (11.5-14.5) Platelet Count 227 x10^3/uL (140-400) Neutrophils (%) (Auto) 64 % (31-73) Lymphocytes (%) (Auto) 24 % (24-48) Monocytes (%) (Auto) 9 % (0-9) Eosinophils (%) (Auto) 2 % (0-3) Basophils (%) (Auto) 1 % (0-3) Neutrophils # (Auto) 7.3 x10^3/uL (1.8-7.7) Lymphocytes # (Auto) 2.7 x10^3/uL (1.0-4.8) Monocytes # (Auto) 1.1 x10^3/uL (0.0-1.1) Eosinophils # (Auto) 0.2 x10^3/uL (0.0-0.7) Basophils # (Auto) 0.1 x10^3/uL (0.0-0.2) Sodium Level 133 mmol/L (136-145) 133 mmol/L (136-145) 136 mmol/L (136-145) Potassium Level 2.3 mmol/L (3.5-5.1) 2.9 mmol/L (3.5-5.1) 3.1 mmol/L (3.5-5.1) Chloride Level 90 mmol/L (98-107) 93 mmol/L (98-107) 98 mmol/L (98-107) Carbon Dioxide Level 36 mmol/L (21-32) 34 mmol/L (21-32) 29 mmol/L (21-32) Anion Gap 7 (6-14) 6 (6-14) 9 (6-14) Blood Urea Nitrogen 8 mg/dL (7-20) 7 mg/dL (7-20) 6 mg/dL (7-20) Creatinine 0.9 mg/dL (0.6-1.0) 0.8 mg/dL (0.6-1.0) 0.9 mg/dL (0.6-1.0) Estimated GFR (Cockcroft-Gault) 84.8 97.1 84.8 BUN/Creatinine Ratio 9 (6-20) Glucose Level 102 mg/dL (70-99) 99 mg/dL (70-99) 101 mg/dL (70-99) Plasma/Serum Osmolality 271 mOsmol/kg (275-295) Calcium Level 8.9 mg/dL (8.5-10.1) 9.2 mg/dL (8.5-10.1) 9.2 mg/dL (8.5-10.1) Total Bilirubin 1.0 mg/dL (0.2-1.0) Aspartate Amino Transf (AST/SGOT) 39 U/L (15-37) Alanine Aminotransferase (ALT/SGPT) 30 U/L (14-59) Alkaline Phosphatase 97 U/L (46-116) Total Protein 7.3 g/dL (6.4-8.2) Albumin 3.2 g/dL (3.4-5.0) Albumin/Globulin Ratio 0.8 (1.0-1.7) Thyroid Stimulating Hormone (TSH) 2.329 uIU/mL (0.358-3.74) Free Thyroxine 1.32 ng/dL (0.76-1.46) Urine Osmolality 303 mOsmol/kg (.) Magnesium Level 2.3 mg/dL (1.8-2.4) Laboratory Tests Test 01/29/20 04:30 Sodium Level 136 mmol/L (136-145) Potassium Level 3.1 mmol/L (3.5-5.1) Chloride Level 98 mmol/L (98-107) Carbon Dioxide Level 29 mmol/L (21-32) Anion Gap 9 (6-14) Blood Urea Nitrogen 6 mg/dL (7-20) Creatinine 0.9 mg/dL (0.6-1.0) Estimated GFR (Cockcroft-Gault) 84.8 Glucose Level 101 mg/dL (70-99) Calcium Level 9.2 mg/dL (8.5-10.1) Magnesium Level 2.3 mg/dL (1.8-2.4) Medications Current Medications Sodium Chloride 1,000 ml @ 1,000 mls/hr 1X ONCE IV Last administered on 01/27/20at 12:05; Start 01/27/20 at 12:00; Stop 01/27/20 at 12:59; Status DC Ondansetron HCl (Zofran) 4 mg 1X ONCE IVP Last administered on 01/27/20at 12:05; Start 01/27/20 at 12:00; Stop 01/27/20 at 12:01; Status DC Famotidine (Pepcid Vial) 20 mg 1X ONCE IVP Last administered on 01/27/20at 12:05; Start 01/27/20 at 12:00; Stop 01/27/20 at 12:01; Status DC Iohexol (Omnipaque 300 Mg/ml) 75 ml 1X ONCE IV Last administered on 01/27/20at 14:35; Start 01/27/20 at 13:15; Stop 01/27/20 at 13:17; Status DC Potassium Chloride (Klor-Con) 40 meq 1X ONCE PO Last administered on 01/27/20at 13:52; Start 01/27/20 at 13:15; Stop 01/27/20 at 13:17; Status DC Iohexol (Omnipaque 300 Mg/ml) 75 ml 1X ONCE IV ; Start 01/27/20 at 14:30; Stop 01/27/20 at 14:31; Status DC Info (CONTRAST GIVEN -- Rx MONITORING) 1 each PRN DAILY PRN MC SEE COMMENTS; Start 01/27/20 at 14:30; Stop 01/29/20 at 14:29 Ondansetron HCl (Zofran) 4 mg PRN Q8HRS PRN IV NAUSEA/VOMITING Last a dministered on 01/28/20at 04:19; Start 01/27/20 at 15:30; Stop 01/28/20 at 15:29; Status DC Morphine Sulfate (Morphine Sulfate) 2 mg PRN Q2HR PRN IV PAIN Last administered on 01/27/20at 20:24; Start 01/27/20 at 15:30; Stop 01/28/20 at 15:29; Status DC Ciprofloxacin/ Dextrose 200 ml @ 200 mls/hr 1X ONCE IV ; Start 01/27/20 at 15:30; Stop 01/27/20 at 16:29; Status DC Metronidazole 100 ml @ 100 mls/hr Q8HRS IV Last administered on 01/29/20at 06:21; Start 01/27/20 at 22:00 Potassium Chloride/Sodium Chloride 1,000 ml @ 75 mls/hr [id number] ONCE IV Last administered on 01/27/20at 19:48; Start 01/27/20 at 16:00; Stop 01/28/20 at 05:19; Status DC Magnesium Sulfate 50 ml @ 25 mls/hr 1X ONCE IV Last administered on 01/27/20at 16:54; Start 01/27/20 at 15:30; Stop 01/27/20 at 17:29; Status DC Metronidazole 100 ml @ 100 mls/hr 1X ONCE IV Last administered on 01/27/20at 15:55; Start 01/27/20 at 15:45; Stop 01/27/20 at 16:44; Status DC Famotidine (Pepcid Vial) 20 mg BID IVP Last administered on 01/29/20at 08:05; S tart 01/27/20 at 21:00; Stop 01/29/20 at 10:00; Status DC Levofloxacin/ Dextrose 100 ml @ 100 mls/hr Q24H IV Last administered on 01/28/20at 21:52; Start 01/27/20 at 19:00 Potassium Chloride/Water 100 ml @ 100 mls/hr Q1H IV Last administered on 01/28/20at 17:38; Start 01/28/20 at 10:00; Stop 01/28/20 at 20:43; Status DC Magnesium Sulfate 50 ml @ 25 mls/hr 1X ONCE IV Last administered on 01/28/20at 17:37; Start 01/28/20 at 10:00; Stop 01/28/20 at 11:59; Status DC Potassium Chloride (Klor-Con) 60 meq 1X ONCE PO Last administered on 01/28/20at 21:51; Start 01/28/20 at 21:30; Stop 01/28/20 at 21:31; Status DC Ondansetron HCl (Zofran) 4 mg PRN Q4HRS PRN IVP NAUSEA/VOMITING Last administered on 01/29/20at 07:05; Start 01/29/20 at 06:45 Famotidine (Pepcid) 20 mg QHS PO ; Start 01/29/20 at 21:00 Lactobacillus Rhamnosus (Culturelle) 1 cap BID PO ; Start 01/29/20 at 21:00 Potassium Chloride (Klor-Con) 40 meq 1X PRN PRN PO SEE COMMENTS; Start 01/29/20 at 13:45 Potassium Bicarbonate (Potassium Effervescent Tablet) 40 meq 1X ONCE FT ; Start 01/29/20 at 13:45; Stop 01/29/20 at 13:46; Status UNV Magnesium Oxide (Magnesium Oxide) 400 mg BID PO ; Start 01/29/20 at 21:00; Stop 01/31/20 at 09:01; Status UNV Potassium Chloride/Water 100 ml @ 100 mls/hr Q1H IV ; Start 01/29/20 at 13:45; Stop 01/29/20 at 17:44; Status UNV Magnesium Sulfate 50 ml @ 25 mls/hr Q24H IV ; Start 01/29/20 at 13:45; Stop 01/31/20 at 15:44; Status UNV Potassium Phos/ Sodium Phos (Phos-Nak) 1 pkt BID PO ; Start 01/29/20 at 21:00; Stop 01/30/20 at 09:01; Status UNV Potassium Bicarbonate (Potassium Effervescent Tablet) 40 meq Q4H PO ; Start 01/29/20 at 13:45; Stop 01/29/20 at 17:46; Status UNV Potassium Chloride/Water 100 ml @ 100 mls/hr Q1H IV ; Start 01/29/20 at 13:45; Stop 01/29/20 at 17:44; Status UNV Vitals/I & O Vital Sign - Last 24 Hours 01/28/20 01/28/20 01/28/20 01/28/20 14:00 15:00 16:00 16:00 Temp 98.3 98.3 Pulse 58 70 66 Resp 20 24 16 B/P (MAP) 114/76 (89) 117/82 (94) 120/78 (92) Pulse Ox 97 98 99 O2 Delivery Room Air Room Air Room Air Room Air 01/28/20 01/28/20 01/28/20 01/28/20 17:00 19:30 20:00 23:20 Temp 97.9 98.8 97.9 98.8 Pulse 65 65 63 Resp 18 18 20 B/P (MAP) 116/69 (85) 107/70 (82) Pulse Ox 100 100 99 O2 Delivery Room Air Room Air Room Air Room Air 01/29/20 01/29/20 01/29/20 01/29/20 02:32 07:00 08:00 11:00 Temp 98.2 97.7 97.6 98.2 97.7 97.6 Pulse 67 65 70 Resp 20 B/P (MAP) 102/65 (77) 112/69 (83) 104/64 (77) Pulse Ox 98 98 99 O2 Delivery Room Air Room Air Room Air Room Air Intake and Output 01/28/20 01/28/20 01/29/20 15:00 23:00 07:00 Intake Total 0 ml 560 ml Output Total 300 ml 300 ml Balance -300 ml 560 ml -300 ml Justicifation of Admission Dx: Justifications for Admission: Justification of Admission Dx: Yes LONI CASTANO MD Jan 29, 2020 13:52
[2020-01-29 14:54] VITALS: BP 112/68
[2020-01-29 19:55] VITALS: BP 118/78
[2020-01-29] MEDS ORDERED: ZOLPIDEM 5 MG TABLET. PO PRN (20:30)
[2020-01-29] MEDS: FAMOTIDINE 20 MG TABLET. PO SCH (20:32)
[2020-01-29] MEDS: LACTOBACILLUS RHAMNOSUS GG 1 CAPSULE. PO SCH (20:32)
[2020-01-29] MEDS ORDERED: POTASSIUM & SODIUM PHOSPHATES PACKET. PO PRN (21:00)
[2020-01-29] MEDS ORDERED: MAGNESIUM OXIDE 400 MG TABLET PO PRN (21:00)
[2020-01-29 23:35] VITALS: BP 102/57
[2020-01-30 03:35] VITALS: BP 116/65
[2020-01-30 07:00] VITALS: BP 119/69
[2020-01-30] MEDS: LACTOBACILLUS RHAMNOSUS GG 1 CAPSULE. PO SCH ×2 (08:04→21:09)
[2020-01-30] MEDS: ONDANSETRON PF 4 MG/2 ML VIAL. IVP PRN ×3 (08:04→17:18)
[2020-01-30 09:54] LABS: CALCIUM 9.2 mg/dL (8.5-10.1); CREATININE 1.1 mg/dL (0.6-1.0); GFR 67.3; PHOSPHORUS 2.3 mg/dL (2.6-4.7); POTASSIUM 3.4 mmol/L (3.5-5.1)
[2020-01-30 11:18] VITALS: BP 109/75
[2020-01-30] MEDS ORDERED: POTASSIUM CHLORIDE 10 MEQ TABLET.ER. PO ONE ×4 (11:30→17:00)
--- NOTE | 2020-01-30 14:06 | PDOC ---
PROGRESS NOTES Date of Service: DATE: 01/30/20 TIME: 14:06 Chief Complaint Chief Complaint Acute colitis Severe dehydration Poor oral intake Severe hyponatremia secondary to low effective circulatory volume Severe electrolyte derangement including hypokalemia and hypomagnesemia COVID 19 under investigation Plan: replace electrolytes follow recommendations from GI foreign legal consultant continue with antibiotics for colitis follow stool studies reassess in the am History of Present Illness History of Present Illness Patient admitted for severe abdominal pain and electrolyte disturbances 01/28/2020 No acute events reported overnight, case discussed with nursing staff patient in no acute distress no complaints during my visit patient only complaining of burning sensation while replacing her potassium plan of care has been explained in detail all of her concerns were addressed to the best of my abilities 01/29/2020 Patient with 2 events of diarrhea earlier in the day. Patient is still having hypokalemia most likely secondary to the bowel movements. Nauseous at the time of my visit in invisible acute distress due to the symptoms reassurance has been provided all of her concerns addressed to the best of my abilities GI foreign legal consultant recommendations noted and greatly appreciated Vitals Vitals Vital Signs Date Time Temp Pulse Resp B/P (MAP) Pulse Ox O2 Delivery O2 Flow Rate FiO2 01/30/20 11:18 97.9 62 18 109/75 (86) 98 Room Air 97.9 Physical Exam General: Alert, Oriented X3, mild distress Abdomen: Other (Genertalized abdominal tenderness) Extremities: No clubbing, No cyanosis, No edema, Normal pulses, No tenderness/swelling Skin: No rashes, No breakdown, No significant lesion Labs LABS Laboratory Tests Test 01/30/20 09:00 Sodium Level 139 mmol/L (136-145) Potassium Level 3.4 mmol/L (3.5-5.1) Chloride Level 101 mmol/L (98-107) Carbon Dioxide Level 30 mmol/L (21-32) Anion Gap 8 (6-14) Blood Urea Nitrogen 6 mg/dL (7-20) Creatinine 1.1 mg/dL (0.6-1.0) Estimated GFR (Cockcroft-Gault) 67.3 Glucose Level 141 mg/dL (70-99) Calcium Level 9.2 mg/dL (8.5-10.1) Phosphorus Level 2.3 mg/dL (2.6-4.7) Assessment and Plan Assessmemt and Plan Problems Medical Problems: (1) Cellulitis of umbilicus Status: Acute (2) Colitis Status: Acute (3) Hypokalemia Status: Acute (4) Hyponatremia Status: Acute (5) Person under investigation for COVID-19 Status: Acute Comment Review of Relevant I have reviewed the following items laurie (where applicable) has been applied. Labs Laboratory Tests Test 01/29/20 04:30 01/30/20 09:00 Sodium Level 136 mmol/L (136-145) 139 mmol/L (136-145) Potassium Level 3.1 mmol/L (3.5-5.1) 3.4 mmol/L (3.5-5.1) Chloride Level 98 mmol/L (98-107) 101 mmol/L (98-107) Carbon Dioxide Level 29 mmol/L (21-32) 30 mmol/L (21-32) Anion Gap 9 (6-14) 8 (6-14) Blood Urea Nitrogen 6 mg/dL (7-20) 6 mg/dL (7-20) Creatinine 0.9 mg/dL (0.6-1.0) 1.1 mg/dL (0.6-1.0) Estimated GFR (Cockcroft-Gault) 84.8 67.3 Glucose Level 101 mg/dL (70-99) 141 mg/dL (70-99) Calcium Level 9.2 mg/dL (8.5-10.1) 9.2 mg/dL (8.5-10.1) Magnesium Level 2.3 mg/dL (1.8-2.4) Phosphorus Level 2.3 mg/dL (2.6-4.7) Laboratory Tests Test 01/30/20 09:00 Sodium Level 139 mmol/L (136-145) Potassium Level 3.4 mmol/L (3.5-5.1) Chloride Level 101 mmol/L (98-107) Carbon Dioxide Level 30 mmol/L (21-32) Anion Gap 8 (6-14) Blood Urea Nitrogen 6 mg/dL (7-20) Creatinine 1.1 mg/dL (0.6-1.0) Estimated GFR (Cockcroft-Gault) 67.3 Glucose Level 141 mg/dL (70-99) Calcium Level 9.2 mg/dL (8.5-10.1) Phosphorus Level 2.3 mg/dL (2.6-4.7) Medications Current Medications Sodium Chloride 1,000 ml @ 1,000 mls/hr 1X ONCE IV Last administered on 01/27/20at 12:05; Start 01/27/20 at 12:00; Stop 01/27/20 at 12:59; Status DC Ondansetron HCl (Zofran) 4 mg 1X ONCE IVP Last administered on 01/27/20at 12:05; Start 01/27/20 at 12:00; Stop 01/27/20 at 12:01; Status DC Famotidine (Pepcid Vial) 20 mg 1X ONCE IVP Last administered on 01/27/20at 12:05; Start 01/27/20 at 12:00; Stop 01/27/20 at 12:01; Status DC Iohexol (Omnipaque 300 Mg/ml) 75 ml 1X ONCE IV Last administered on 01/27/20at 14:35; Start 01/27/20 at 13:15; Stop 01/27/20 at 13:17; Status DC Potassium Chloride (Klor-Con) 40 meq 1X ONCE PO Last administered on 01/27/20at 13:52; Start 01/27/20 at 13:15; Stop 01/27/20 at 13:17; Status DC Iohexol (Omnipaque 300 Mg/ml) 75 ml 1X ONCE IV ; Start 01/27/20 at 14:30; Stop 01/27/20 at 14:31; Status DC Info (CONTRAST GIVEN -- Rx MONITORING) 1 each PRN DAILY PRN MC SEE COMMENTS; Start 01/27/20 at 14:30; Stop 01/29/20 at 14:29; Status DC Ondansetron HCl (Zofran) 4 mg PRN Q8HRS PRN IV NAUSEA/VOMITING Last administered on 01/28/20at 04:19; Start 01/27/20 at 15:30; Stop 01/28/20 at 15:29; Status DC Morphine Sulfate (Morphine Sulfate) 2 mg PRN Q2HR PRN IV PAIN Last administered on 01/27/20at 20:24; Start 01/27/20 at 15:30; Stop 01/28/20 at 15:29; Status DC Ciprofloxacin/ Dextrose 200 ml @ 200 mls/hr 1X ONCE IV ; Start 01/27/20 at 15:30; Stop 01/27/20 at 16:29; Status DC Metronidazole 100 ml @ 100 mls/hr Q8HRS IV Last administered on 01/30/20at 13:46; Start 01/27/20 at 22:00 Potassium Chloride/Sodium Chloride 1,000 ml @ 75 mls/hr [id number] ONCE IV Last administered on 01/27/20at 19:48; Start 01/27/20 at 16:00; Stop 01/28/20 at 05:19; Status DC Magnesium Sulfate 50 ml @ 25 mls/hr 1X ONCE IV Last administered on 01/27/20at 16:54; Start 01/27/20 at 15:30; Stop 01/27/20 at 17:29; Status DC Metronidazole 100 ml @ 100 mls/hr 1X ONCE IV Last administered on 01/27/20at 15:55; Start 01/27/20 at 15:45; Stop 01/27/20 at 16:44; Status DC Famotidine (Pepcid Vial) 20 mg BID IVP Last administered on 01/29/20at 08:05; Start 01/27/20 at 21:00; Stop 01/29/20 at 10:00; Status DC Levofloxacin/ Dextrose 100 ml @ 100 mls/hr Q24H IV Last administered on 01/29/20at 18:05; Start 01/27/20 at 19:00 Potassium Chloride/Water 100 ml @ 100 mls/hr Q1H IV Last administered on 01/28/20at 17:38; Start 01/28/20 at 10:00; Stop 01/28/20 at 20:43; Status DC Magnesium Sulfate 50 ml @ 25 mls/hr 1X ONCE IV Last administered on 01/28/20at 17:37; Start 01/28/20 at 10:00; Stop 01/28/20 at 11:59; Status DC Potassium Chloride (Klor-Con) 60 meq 1X ONCE PO Last administered on 01/28/20at 21:51; Start 01/28/20 at 21:30; Stop 01/28/20 at 21:31; Status DC Ondansetron HCl (Zofran) 4 mg PRN Q4HRS PRN IVP NAUSEA/VOMITING Last administered on 01/30/20at 12:06; Start 01/29/20 at 06:45 Famotidine (Pepcid) 20 mg QHS PO Last administered on 01/29/20at 20:32; Start 01/29/20 at 21:00 Lactobacillus Rhamnosus (Culturelle) 1 cap BID PO Last administered on 01/30/20at 08:04; Start 01/29/20 at 21:00 Potassium Chloride (Klor-Con) 40 meq 1X PRN PRN PO SEE COMMENTS Last administered on 01/29/20at 16:21; Start 01/29/20 at 13:45 Potassium Bicarbonate (Potassium Effervescent Tablet) 40 meq 1X PRN PRN FT SEE COMMENTS; Start 01/29/20 at 13:45 Magnesium Oxide (Magnesium Oxide) 400 mg PRN BID PRN PO SEE COMMENTS; Start 01/29/20 at 21:00 Potassium Chloride/Water 100 ml @ 100 mls/hr PRN Q1HR PRN IV SEE COMMENTS; Start 01/29/20 at 13:45 Magnesium Sulfate 50 ml @ 25 mls/hr PRN DAILY PRN IV SEE COMMENTS; Start 01/29/20 at 13:45 Potassium Phos/ Sodium Phos (Phos-Nak) 1 pkt PRN BID PRN PO SEE COMMENTS; Start 01/29/20 at 21:00 Potassium Bicarbonate (Potassium Effervescent Tablet) 40 meq PRN Q4HRS PRN PO SEE COMMENTS; Start 01/29/20 at 13:45 Potassium Chloride/Water 100 ml @ 100 mls/hr PRN Q1HR PRN IV SEE COMMENTS; Start 01/29/20 at 13:45 Zolpidem Tartrate (Ambien) 5 mg PRN QHS PRN PO INSOMNIA Last administered on 01/29/20at 22:06; Start 01/29/20 at 20:30 Potassium Chloride (Klor-Con) 10 meq 1X ONCE PO Last administered on 01/30/20at 12:06; Start 01/30/20 at 11:30; Stop 01/30/20 at 11:31; Status DC Potassium Chloride (Klor-Con) 10 meq 1X ONCE PO ; Start 01/30/20 at 17:00; Stop 01/30/20 at 17:01 Potassium Chloride (Klor-Con) 10 meq 1X ONCE PO Last administered on 01/30/20at 12:06; Start 01/30/20 at 11:30; Stop 01/30/20 at 11:31; Status DC Potassium Chloride (Klor-Con) 10 meq 1X ONCE PO ; Start 01/30/20 at 17:00; Stop 01/30/20 at 17:01 Vitals/I & O Vital Sign - Last 24 Hours 01/29/20 01/29/20 01/29/20 01/29/20 14:54 19:30 19:55 23:35 Temp 97.7 98.0 98.8 97.7 98.0 98.8 Pulse 87 81 60 Resp 20 19 18 B/P (MAP) 112/68 (83) 118/78 (91) 102/57 (72) Pulse Ox 100 98 98 O2 Delivery Room Air Room Air Room Air Room Air 01/30/20 01/30/20 01/30/20 01/30/20 03:35 07:00 08:00 11:18 Temp 98.2 97.8 97.9 98.2 97.8 97.9 Pulse 53 63 62 Resp 18 16 18 B/P (MAP) 116/65 (82) 119/69 (86) 109/75 (86) Pulse Ox 100 99 98 O2 Delivery Room Air Room Air Room Air Room Air Intake and Output 01/29/20 01/29/20 01/30/20 15:00 23:00 07:00 Intake Total 530 ml 400 ml 400 ml Output Total 100 ml Balance 530 ml 400 ml 300 ml Justicifation of Admission Dx: Justifications for Admission: Justification of Admission Dx: Yes LONI CASTANO MD Jan 30, 2020 14:06
[2020-01-30 15:00] VITALS: BP 123/80
[2020-01-30 19:48] VITALS: BP 112/71
[2020-01-30] MEDS: FAMOTIDINE 20 MG TABLET. PO SCH (21:09)
[2020-01-30 22:59] VITALS: BP 111/70
[2020-01-31 03:24] VITALS: BP 105/62
[2020-01-31 07:00] VITALS: BP 103/62
[2020-01-31] MEDS: LACTOBACILLUS RHAMNOSUS GG 1 CAPSULE. PO SCH ×2 (08:14→20:45)
[2020-01-31] MEDS: ONDANSETRON PF 4 MG/2 ML VIAL. IVP PRN (08:15)
[2020-01-31 09:03] LABS: CALCIUM 9.4 mg/dL (8.5-10.1); GFR 75.1
[2020-01-31 11:23] VITALS: BP 112/73
[2020-01-31] MEDS: PROCHLORPERAZINE 10 MG/2 ML VIAL. IV PRN ×2 (12:13→18:15)
[2020-01-31] MEDS: metroNIDAZOLE 500 MG TABLET PO SCH ×2 (13:38→20:45)
[2020-01-31 15:07] VITALS: BP 100/63
--- NOTE | 2020-01-31 16:00 | PDOC ---
PROGRESS NOTES Date of Service: DATE: 01/31/20 TIME: 15:58 Chief Complaint Chief Complaint Acute colitis Severe dehydration Poor oral intake Severe hyponatremia secondary to low effective circulatory volume Severe electrolyte derangement including hypokalemia and hypomagnesemia COVID 19 under investigation Plan: replace electrolytes follow recommendations from GI groundwater consultant continue with antibiotics for colitis follow stool studies compazine for symptoms control reassess in the am History of Present Illness History of Present Illness Patient admitted for severe abdominal pain and electrolyte disturbances 01/28/2020 No acute events reported overnight, case discussed with nursing staff patient in no acute distress no complaints during my visit patient only complaining of burning sensation while replacing her potassium plan of care has been explained in detail all of her concerns were addressed to the best of my abilities 01/29/2020 Patient with 2 events of diarrhea earlier in the day. Patient is still having hypokalemia most likely secondary to the bowel movements. Nauseous at the time of my visit in invisible acute distress due to the symptoms reassurance has been provided all of her concerns addressed to the best of my abilities GI groundwater consultant recommendations noted and greatly appreciated 01/30/2020 No acute events reported overnight, case discussed with nursing staff patient in no acute distress no complaints during my visit, unfortunately the patient continues to have nausea and vomiting which have not responded to Zofran. Compazine has been added and seems to be working better Vitals Vitals Vital Signs Date Time Temp Pulse Resp B/P (MAP) Pulse Ox O2 Delivery O2 Flow Rate FiO2 01/31/20 15:07 98.3 62 16 100/63 (75) 97 Room Air 98.3 Physical Exam General: Alert, Oriented X3, mild distress Abdomen: Other (Genertalized abdominal tenderness) Extremities: No clubbing, No cyanosis, No edema, Normal pulses, No tenderness/swelling Skin: No rashes, No breakdown, No significant lesion Labs LABS Laboratory Tests Test 01/31/20 08:30 Sodium Level 137 mmol/L (136-145) Potassium Level 4.0 mmol/L (3.5-5.1) Chloride Level 102 mmol/L (98-107) Carbon Dioxide Level 22 mmol/L (21-32) Anion Gap 13 (6-14) Blood Urea Nitrogen 5 mg/dL (7-20) Creatinine 1.0 mg/dL (0.6-1.0) Estimated GFR (Cockcroft-Gault) 75.1 Glucose Level 105 mg/dL (70-99) Calcium Level 9.4 mg/dL (8.5-10.1) Magnesium Level 2.0 mg/dL (1.8-2.4) Assessment and Plan Assessmemt and Plan Problems Medical Problems: (1) Cellulitis of umbilicus Status: Acute (2) Colitis Status: Acute (3) Hypokalemia Status: Acute (4) Hyponatremia Status: Acute (5) Person under investigation for COVID-19 Status: Acute Comment Review of Relevant I have reviewed the following items laurie (where applicable) has been applied. Labs Laboratory Tests Test 01/29/20 19:30 01/30/20 09:00 01/31/20 08:30 Stool Campylobacter PCR Negative (NEGATIVE) Stool E. coli Shiga Toxins (PCR) Negative (NEGATIVE) Stool Salmonella PCR Negative (NEGATIVE) Stool Shigella PCR Negative (NEGATIVE) Sodium Level 139 mmol/L (136-145) 137 mmol/L (136-145) Potassium Level 3.4 mmol/L (3.5-5.1) 4.0 mmol/L (3.5-5.1) Chloride Level 101 mmol/L (98-107) 102 mmol/L (98-107) Carbon Dioxide Level 30 mmol/L (21-32) 22 mmol/L (21-32) Anion Gap 8 (6-14) 13 (6-14) Blood Urea Nitrogen 6 mg/dL (7-20) 5 mg/dL (7-20) Creatinine 1.1 mg/dL (0.6-1.0) 1.0 mg/dL (0.6-1.0) Estimated GFR (Cockcroft-Gault) 67.3 75.1 Glucose Level 141 mg/dL (70-99) 105 mg/dL (70-99) Calcium Level 9.2 mg/dL (8.5-10.1) 9.4 mg/dL (8.5-10.1) Phosphorus Level 2.3 mg/dL (2.6-4.7) Magnesium Level 2.0 mg/dL (1.8-2.4) Laboratory Tests Test 01/31/20 08:30 Sodium Level 137 mmol/L (136-145) Potassium Level 4.0 mmol/L (3.5-5.1) Chloride Level 102 mmol/L (98-107) Carbon Dioxide Level 22 mmol/L (21-32) Anion Gap 13 (6-14) Blood Urea Nitrogen 5 mg/dL (7-20) Creatinine 1.0 mg/dL (0.6-1.0) Estimated GFR (Cockcroft-Gault) 75.1 Glucose Level 105 mg/dL (70-99) Calcium Level 9.4 mg/dL (8.5-10.1) Magnesium Level 2.0 mg/dL (1.8-2.4) Medications Current Medications Sodium Chloride 1,000 ml @ 1,000 mls/hr 1X ONCE IV Last administered on 01/27/20at 12:05; Start 01/27/20 at 12:00; Stop 01/27/20 at 12:59; Status DC Ondansetron HCl (Zofran) 4 mg 1X ONCE IVP Last administered on 01/27/20at 12:05; Start 01/27/20 at 12:00; Stop 01/27/20 at 12:01; Status DC Famotidine (Pepcid Vial) 20 mg 1X ONCE IVP Last administered on 01/27/20at 12:05; Start 01/27/20 at 12:00; Stop 01/27/20 at 12:01; Status DC Iohexol (Omnipaque 300 Mg/ml) 75 ml 1X ONCE IV Last administered on 01/27/20at 14:35; Start 01/27/20 at 13:15; Stop 01/27/20 at 13:17; Status DC Potassium Chloride (Klor-Con) 40 meq 1X ONCE PO Last administered on 01/27/20at 13:52; Start 01/27/20 at 13:15; Stop 01/27/20 at 13:17; Status DC Iohexol (Omnipaque 300 Mg/ml) 75 ml 1X ONCE IV ; Start 01/27/20 at 14:30; Stop 01/27/20 at 14:31; Status DC Info (CONTRAST GIVEN -- Rx MONITORING) 1 each PRN DAILY PRN MC SEE COMMENTS; Start 01/27/20 at 14:30; Stop 01/29/20 at 14:29; Status DC Ondansetron HCl (Zofran) 4 mg PRN Q8HRS PRN IV NAUSEA/VOMITING Last administered on 01/28/20at 04:19; Start 01/27/20 at 15:30; Stop 01/28/20 at 15:29; Status DC Morphine Sulfate (Morphine Sulfate) 2 mg PRN Q2HR PRN IV PAIN Last administered on 01/27/20at 20:24; Start 01/27/20 at 15:30; Stop 01/28/20 at 15:29; Status DC Ciprofloxacin/ Dextrose 200 ml @ 200 mls/hr 1X ONCE IV ; Start 01/27/20 at 15:30; Stop 01/27/20 at 16:29; Status DC Metronidazole 100 ml @ 100 mls/hr Q8HRS IV Last administered on 01/31/20at 06:03; Start 01/27/20 at 22:00; Stop 01/31/20 at 13:02; Status DC Potassium Chloride/Sodium Chloride 1,000 ml @ 75 mls/hr [id number] ONCE IV Last administered on 01/27/20at 19:48; Start 01/27/20 at 16:00; Stop 01/28/20 at 05:19; Status DC Magnesium Sulfate 50 ml @ 25 mls/hr 1X ONCE IV Last administered on 01/27/20at 16:54; Start 01/27/20 at 15:30; Stop 01/27/20 at 17:29; Status DC Metronidazole 100 ml @ 100 mls/hr 1X ONCE IV Last administered on 01/27/20at 15:55; Start 01/27/20 at 15:45; Stop 01/27/20 at 16:44; Status DC Famotidine (Pepcid Vial) 20 mg BID IVP Last administered on 01/29/20at 08:05; Start 01/27/20 at 21:00; Stop 01/29/20 at 10:00; Status DC Levofloxacin/ Dextrose 100 ml @ 100 mls/hr Q24H IV Last administered on 01/30/20at 18:22; Start 01/27/20 at 19:00; Stop 01/31/20 at 13:02; Status DC Potassium Chloride/Water 100 ml @ 100 mls/hr Q1H IV Last administered on 01/28/20at 17:38; Start 01/28/20 at 10:00; Stop 01/28/20 at 20:43; Status DC Magnesium Sulfate 50 ml @ 25 mls/hr 1X ONCE IV Last administered on 01/28/20at 17:37; Start 01/28/20 at 10:00; Stop 01/28/20 at 11:59; Status DC Potassium Chloride (Klor-Con) 60 meq 1X ONCE PO Last administered on 01/28/20at 21:51; Start 01/28/20 at 21:30; Stop 01/28/20 at 21:31; Status DC Ondansetron HCl (Zofran) 4 mg PRN Q4HRS PRN IVP NAUSEA/VOMITING Last administered on 01/31/20at 08:15; Start 01/29/20 at 06:45 Famotidine (Pepcid) 20 mg QHS PO Last administered on 01/30/20at 21:09; Start 01/29/20 at 21:00 Lactobacillus Rhamnosus (Culturelle) 1 cap BID PO Last administered on 01/31/20at 08:14; Start 01/29/20 at 21:00 Potassium Chloride (Klor-Con) 40 meq 1X PRN PRN PO SEE COMMENTS Last administered on 01/29/20at 16:21; Start 01/29/20 at 13:45 Potassium Bicarbonate (Potassium Effervescent Tablet) 40 meq 1X PRN PRN FT SEE COMMENTS; Start 01/29/20 at 13:45 Magnesium Oxide (Magnesium Oxide) 400 mg PRN BID PRN PO SEE COMMENTS; Start 01/29/20 at 21:00 Potassium Chloride/Water 100 ml @ 100 mls/hr PRN Q1HR PRN IV SEE COMMENTS; Start 01/29/20 at 13:45 Magnesium Sulfate 50 ml @ 25 mls/hr PRN DAILY PRN IV SEE COMMENTS; Start 01/29/20 at 13:45 Potassium Phos/ Sodium Phos (Phos-Nak) 1 pkt PRN BID PRN PO SEE COMMENTS Last administered on 01/30/20at 18:22; Start 01/29/20 at 21:00 Potassium Bicarbonate (Potassium Effervescent Tablet) 40 meq PRN Q4HRS PRN PO SEE COMMENTS; Start 01/29/20 at 13:45 Potassium Chloride/Water 100 ml @ 100 mls/hr PRN Q1HR PRN IV SEE COMMENTS; Start 01/29/20 at 13:45 Zolpidem Tartrate (Ambien) 5 mg PRN QHS PRN PO INSOMNIA Last administered on 01/29/20at 22:06; Start 01/29/20 at 20:30 Potassium Chloride (Klor-Con) 10 meq 1X ONCE PO Last administered on 01/30/20at 12:06; Start 01/30/20 at 11:30; Stop 01/30/20 at 11:31; Status DC Potassium Chloride (Klor-Con) 10 meq 1X ONCE PO Last administered on 01/30/20at 17:18; Start 01/30/20 at 17:00; Stop 01/30/20 at 17:01; Status DC Potassium Chloride (Klor-Con) 10 meq 1X ONCE PO Last administered on 01/30/20at 12:06; Start 01/30/20 at 11:30; Stop 01/30/20 at 11:31; Status DC Potassium Chloride (Klor-Con) 10 meq 1X ONCE PO Last administered on 01/30/20at 17:18; Start 01/30/20 at 17:00; Stop 01/30/20 at 17:01; Status DC Prochlorperazine Edisylate (Compazine) 10 mg PRN Q6HRS PRN IV NAUSEA/VOMITING Last administered on 01/31/20at 12:13; Start 01/31/20 at 12:15 Metronidazole (Flagyl) 500 mg Q8HRS PO Last administered on 01/31/20at 13:38; Start 01/31/20 at 14:00 Levofloxacin (Levaquin) 500 mg DAILY06 PO ; Start 01/31/20 at 17:00 Vitals/I & O Vital Sign - Last 24 Hours 01/30/20 01/30/20 01/30/20 01/31/20 19:48 20:00 22:59 03:24 Temp 98.4 98.2 98.6 98.4 98.2 98.6 Pulse 92 59 52 Resp 18 18 18 B/P (MAP) 112/71 (85) 111/70 (84) 105/62 (76) Pulse Ox 100 100 100 O2 Delivery Room Air Room Air Room Air Room Air 01/31/20 01/31/20 01/31/20 01/31/20 07:00 08:00 10:09 11:23 Temp 98.1 98.2 98.1 98.2 Pulse 57 71 Resp 16 18 B/P (MAP) 103/62 (76) 112/73 (86) Pulse Ox 99 99 O2 Delivery Room Air Room Air Room Air Room Air 01/31/20 15:07 Temp 98.3 98.3 Pulse 62 Resp 16 B/P (MAP) 100/63 (75) Pulse Ox 97 O2 Delivery Room Air Intake and Output 01/30/20 01/30/20 01/31/20 15:00 23:00 07:00 Intake Total 480 ml 220 ml 0 ml Balance 480 ml 220 ml 0 ml Justicifation of Admission Dx: Justifications for Admission: Justification of Admission Dx: Yes LONI CASTANO MD Jan 31, 2020 16:00
[2020-01-31 19:28] VITALS: BP 123/65
[2020-01-31] MEDS: FAMOTIDINE 20 MG TABLET. PO SCH (20:45)
[2020-01-31 22:38] VITALS: BP 105/73
[2020-02-01 03:13] VITALS: BP 123/78
[2020-02-01 04:12] LABS: GFR 75.1; POTASSIUM 3.7 mmol/L (3.5-5.1)
[2020-02-01] MEDS: metroNIDAZOLE 500 MG TABLET PO SCH ×3 (05:20→21:18)
[2020-02-01 07:00] VITALS: BP 116/68
[2020-02-01] MEDS: LACTOBACILLUS RHAMNOSUS GG 1 CAPSULE. PO SCH ×2 (08:43→21:18)
--- NOTE | 2020-02-01 10:03 | PDOC ---
Date of Service: DATE: 02/01/20 TIME: 09:58 Subjective: Subjective: No recurrent diarrhea. Vomiting when diet advanced over the weekend. Nausea an issue over the weekend but NO nausea or vomiting since her nausea medication was changed yesterday. Tolerating liquids today. Objective: Objective: D/w Dr. Workman - didn't really get better over the weekend. Reviewed meds - has IV Zofran (last took yesterday a.m.) and IV Compazine (last took yesterday p.m.). On PO Flagyl and Levaquin. Vital Signs: Vital Signs Date Time Temp Pulse Resp B/P (MAP) Pulse Ox O2 Delivery O2 Flow Rate FiO2 02/01/20 07:00 98.3 60 16 116/68 (84) 99 Room Air 98.3 Labs: Laboratory Tests Test 02/01/20 03:03 Sodium Level 141 mmol/L Potassium Level 3.7 mmol/L Chloride Level 105 mmol/L Carbon Dioxide Level 25 mmol/L Anion Gap 11 Blood Urea Nitrogen 5 mg/dL Creatinine 1.0 mg/dL Estimated GFR (Cockcroft-Gault) 75.1 Glucose Level 102 mg/dL Calcium Level 9.0 mg/dL Enteric panel negative; C Diff apparently uncollected due to resolution of diarrhea. PE: GEN: NAD LUNGS: CTAB HEART: RRR ABD: S/ND/NT NEURO/PSYCH: A & O 3 A/P: N/v - problematic over the weekend, better since Compazine Diarrhea - resolved? Abnormal CT - right-sided/transverse colitis, possible gastritis COVID negative -- Reviewed w/ Propeck - check GB US and HIDA. If unrevealing, consider DC w/ possible outpt EGD. Nurse called this afternoon - [facility] told her they are busy and have asked to postpone HIDA til tomorrow. Justicifation of Admission Dx: Justifications for Admission: Justification of Admission Dx: Yes RODRIGUEZ CARVER Feb 01, 2020 10:03
[2020-02-01 11:00] VITALS: BP 137/85
--- NOTE | 2020-02-01 12:41 | NUR ---
SS following up with discharge planning. SS reviewed pt chart and discussed with pt RN. Pt is currently on room air. Pt having abdominal ultrasound and gall bladder scan. COVID19 negative. Pt on clear liquid diet. SS will continue to follow for discharge planning.
--- NOTE | 2020-02-01 14:32 | PDOC ---
PROGRESS NOTES Date of Service: DATE: 02/01/20 TIME: 14:30 Chief Complaint Chief Complaint Acute colitis much improved Severe dehydration Poor oral intake Severe hyponatremia secondary to low effective circulatory volume Severe electrolyte derangement including hypokalemia and hypomagnesemia COVID 19 under investigation Plan: replace electrolytes follow recommendations from GI storage consultant, ANDERSA scan planned for today, advance diet pending results of the test continue with antibiotics for colitis follow stool studies compazine for symptoms control reassess in the am History of Present Illness History of Present Illness Patient admitted for severe abdominal pain and electrolyte disturbances 01/28/2020 No acute events reported overnight, case discussed with nursing staff patient in no acute distress no complaints during my visit patient only complaining of burning sensation while replacing her potassium plan of care has been explained in detail all of her concerns were addressed to the best of my abilities 01/29/2020 Patient with 2 events of diarrhea earlier in the day. Patient is still having hypokalemia most likely secondary to the bowel movements. Nauseous at the time of my visit in invisible acute distress due to the symptoms reassurance has been provided all of her concerns addressed to the best of my abilities GI storage consultant recommendations noted and greatly appreciated 01/30/2020 No acute events reported overnight, case discussed with nursing staff patient in no acute distress no complaints during my visit, unfortunately the patient continues to have nausea and vomiting which have not responded to Zofran. Compazine has been added and seems to be working better 01/31/2020 No new complaints, feels well and she has not had recurrence of symptoms, will follow recommendations from consultants. Vitals Vitals Vital Signs Date Time Temp Pulse Resp B/P (MAP) Pulse Ox O2 Delivery O2 Flow Rate FiO2 02/01/20 11:00 97.9 65 18 137/85 (102) 100 Room Air 97.9 Physical Exam General: Alert, Oriented X3, mild distress Abdomen: Other (Genertalized abdominal tenderness) Extremities: No clubbing, No cyanosis, No edema, Normal pulses, No tenderness/swelling Skin: No rashes, No breakdown, No significant lesion Labs LABS Laboratory Tests Test 02/01/20 03:03 Sodium Level 141 mmol/L (136-145) Potassium Level 3.7 mmol/L (3.5-5.1) Chloride Level 105 mmol/L (98-107) Carbon Dioxide Level 25 mmol/L (21-32) Anion Gap 11 (6-14) Blood Urea Nitrogen 5 mg/dL (7-20) Creatinine 1.0 mg/dL (0.6-1.0) Estimated GFR (Cockcroft-Gault) 75.1 Glucose Level 102 mg/dL (70-99) Calcium Level 9.0 mg/dL (8.5-10.1) Assessment and Plan Assessmemt and Plan Problems Medical Problems: (1) Cellulitis of umbilicus Status: Acute (2) Colitis Status: Acute (3) Hypokalemia Status: Acute (4) Hyponatremia Status: Acute (5) Person under investigation for COVID-19 Status: Acute Comment Review of Relevant I have reviewed the following items laurie (where applicable) has been applied. Labs Laboratory Tests Test 01/31/20 08:30 02/01/20 03:03 Sodium Level 137 mmol/L (136-145) 141 mmol/L (136-145) Potassium Level 4.0 mmol/L (3.5-5.1) 3.7 mmol/L (3.5-5.1) Chloride Level 102 mmol/L (98-107) 105 mmol/L (98-107) Carbon Dioxide Level 22 mmol/L (21-32) 25 mmol/L (21-32) Anion Gap 13 (6-14) 11 (6-14) Blood Urea Nitrogen 5 mg/dL (7-20) 5 mg/dL (7-20) Creatinine 1.0 mg/dL (0.6-1.0) 1.0 mg/dL (0.6-1.0) Estimated GFR (Cockcroft-Gault) 75.1 75.1 Glucose Level 105 mg/dL (70-99) 102 mg/dL (70-99) Calcium Level 9.4 mg/dL (8.5-10.1) 9.0 mg/dL (8.5-10.1) Magnesium Level 2.0 mg/dL (1.8-2.4) Laboratory Tests Test 02/01/20 03:03 Sodium Level 141 mmol/L (136-145) Potassium Level 3.7 mmol/L (3.5-5.1) Chloride Level 105 mmol/L (98-107) Carbon Dioxide Level 25 mmol/L (21-32) Anion Gap 11 (6-14) Blood Urea Nitrogen 5 mg/dL (7-20) Creatinine 1.0 mg/dL (0.6-1.0) Estimated GFR (Cockcroft-Gault) 75.1 Glucose Level 102 mg/dL (70-99) Calcium Level 9.0 mg/dL (8.5-10.1) Medications Current Medications Sodium Chloride 1,000 ml @ 1,000 mls/hr 1X ONCE IV Last administered on 01/27/20at 12:05; Start 01/27/20 at 12:00; Stop 01/27/20 at 12:59; Status DC Ondansetron HCl (Zofran) 4 mg 1X ONCE IVP Last administered on 01/27/20at 12:05; Start 01/27/20 at 12:00; Stop 01/27/20 at 12:01; Status DC Famotidine (Pepcid Vial) 20 mg 1X ONCE IVP Last administered on 01/27/20at 12:05; Start 01/27/20 at 12:00; Stop 01/27/20 at 12:01; Status DC Iohexol (Omnipaque 300 Mg/ml) 75 ml 1X ONCE IV Last administered on 01/27/20at 14:35; Start 01/27/20 at 13:15; Stop 01/27/20 at 13:17; Status DC Potassium Chloride (Klor-Con) 40 meq 1X ONCE PO Last administered on 01/27/20at 13:52; Start 01/27/20 at 13:15; Stop 01/27/20 at 13:17; Status DC Iohexol (Omnipaque 300 Mg/ml) 75 ml 1X ONCE IV ; Start 01/27/20 at 14:30; Stop 01/27/20 at 14:31; Status DC Info (CONTRAST GIVEN -- Rx MONITORING) 1 each PRN DAILY PRN MC SEE COMMENTS; Start 01/27/20 at 14:30; Stop 01/29/20 at 14:29; Status DC Ondansetron HCl (Zofran) 4 mg PRN Q8HRS PRN IV NAUSEA/VOMITING Last administered on 01/28/20at 04:19; Start 01/27/20 at 15:30; Stop 01/28/20 at 15:29; Status DC Morphine Sulfate (Morphine Sulfate) 2 mg PRN Q2HR PRN IV PAIN Last administered on 01/27/20at 20:24; Start 01/27/20 at 15:30; Stop 01/28/20 at 15:29; Status DC Ciprofloxacin/ Dextrose 200 ml @ 200 mls/hr 1X ONCE IV ; Start 01/27/20 at 15:30; Stop 01/27/20 at 16:29; Status DC Metronidazole 100 ml @ 100 mls/hr Q8HRS IV Last administered on 01/31/20at 06:03; Start 01/27/20 at 22:00; Stop 01/31/20 at 13:02; Status DC Potassium Chloride/Sodium Chloride 1,000 ml @ 75 mls/hr [id number] ONCE IV Last administered on 01/27/20at 19:48; Start 01/27/20 at 16:00; Stop 01/28/20 at 05:19; Status DC Magnesium Sulfate 50 ml @ 25 mls/hr 1X ONCE IV Last administered on 01/27/20at 16:54; Start 01/27/20 at 15:30; Stop 01/27/20 at 17:29; Status DC Metronidazole 100 ml @ 100 mls/hr 1X ONCE IV Last administered on 01/27/20at 15:55; Start 01/27/20 at 15:45; Stop 01/27/20 at 16:44; Status DC Famotidine (Pepcid Vial) 20 mg BID IVP Last administered on 01/29/20at 08:05; Start 01/27/20 at 21:00; Stop 01/29/20 at 10:00; Status DC Levofloxacin/ Dextrose 100 ml @ 100 mls/hr Q24H IV Last administered on 01/30/20at 18:22; Start 01/27/20 at 19:00; Stop 01/31/20 at 13:02; Status DC Potassium Chloride/Water 100 ml @ 100 mls/hr Q1H IV Last administered on 01/28/20at 17:38; Start 01/28/20 at 10:00; Stop 01/28/20 at 20:43; Status DC Magnesium Sulfate 50 ml @ 25 mls/hr 1X ONCE IV Last administered on 01/28/20at 17:37; Start 01/28/20 at 10:00; Stop 01/28/20 at 11:59; Status DC Potassium Chloride (Klor-Con) 60 meq 1X ONCE PO Last administered on 01/28/20at 21:51; Start 01/28/20 at 21:30; Stop 01/28/20 at 21:31; Status DC Ondansetron HCl (Zofran) 4 mg PRN Q4HRS PRN IVP NAUSEA/VOMITING Last administered on 01/31/20at 08:15; Start 01/29/20 at 06:45 Famotidine (Pepcid) 20 mg QHS PO Last administered on 01/31/20at 20:45; Start 01/29/20 at 21:00 Lactobacillus Rhamnosus (Culturelle) 1 cap BID PO Last administered on 02/01/20at 08:43; Start 01/29/20 at 21:00 Potassium Chloride (Klor-Con) 40 meq 1X PRN PRN PO SEE COMMENTS Last administered on 01/29/20at 16:21; Start 01/29/20 at 13:45 Potassium Bicarbonate (Potassium Effervescent Tablet) 40 meq 1X PRN PRN FT SEE COMMENTS; Start 01/29/20 at 13:45 Magnesium Oxide (Magnesium Oxide) 400 mg PRN BID PRN PO SEE COMMENTS; Start 01/29/20 at 21:00 Potassium Chloride/Water 100 ml @ 100 mls/hr PRN Q1HR PRN IV SEE COMMENTS; Start 01/29/20 at 13:45 Magnesium Sulfate 50 ml @ 25 mls/hr PRN DAILY PRN IV SEE COMMENTS; Start 01/29/20 at 13:45 Potassium Phos/ Sodium Phos (Phos-Nak) 1 pkt PRN BID PRN PO SEE COMMENTS Last administered on 01/30/20at 18:22; Start 01/29/20 at 21:00 Potassium Bicarbonate (Potassium Effervescent Tablet) 40 meq PRN Q4HRS PRN PO SEE COMMENTS; Start 01/29/20 at 13:45 Potassium Chloride/Water 100 ml @ 100 mls/hr PRN Q1HR PRN IV SEE COMMENTS; Start 01/29/20 at 13:45 Zolpidem Tartrate (Ambien) 5 mg PRN QHS PRN PO INSOMNIA Last administered on 01/29/20at 22:06; Start 01/29/20 at 20:30 Potassium Chloride (Klor-Con) 10 meq 1X ONCE PO Last administered on 01/30/20at 12:06; Start 01/30/20 at 11:30; Stop 01/30/20 at 11:31; Status DC Potassium Chloride (Klor-Con) 10 meq 1X ONCE PO Last administered on 01/30/20at 17:18; Start 01/30/20 at 17:00; Stop 01/30/20 at 17:01; Status DC Potassium Chloride (Klor-Con) 10 meq 1X ONCE PO Last administered on 01/30/20at 12:06; Start 01/30/20 at 11:30; Stop 01/30/20 at 11:31; Status DC Potassium Chloride (Klor-Con) 10 meq 1X ONCE PO Last administered on 01/30/20at 17:18; Start 01/30/20 at 17:00; Stop 01/30/20 at 17:01; Status DC Prochlorperazine Edisylate (Compazine) 10 mg PRN Q6HRS PRN IV NAUSEA/VOMITING Last administered on 01/31/20at 18:15; Start 01/31/20 at 12:15 Metronidazole (Flagyl) 500 mg Q8HRS PO Last administered on 02/01/20at 05:20; Start 01/31/20 at 14:00 Levofloxacin (Levaquin) 500 mg DAILY06 PO Last administered on 02/01/20at 05:20; Start 01/31/20 at 17:00 Vitals/I & O Vital Sign - Last 24 Hours 01/31/20 01/31/20 01/31/20 01/31/20 15:07 19:28 19:33 22:38 Temp 98.3 98.5 98.3 98.3 98.5 98.3 Pulse 62 56 64 Resp 16 18 18 B/P (MAP) 100/63 (75) 123/65 (84) 105/73 (84) Pulse Ox 97 100 100 O2 Delivery Room Air Room Air Room Air Room Air 02/01/20 02/01/20 02/01/20 02/01/20 03:13 07:00 08:00 11:00 Temp 98.3 98.3 97.9 98.3 98.3 97.9 Pulse 62 60 65 Resp 18 16 18 B/P (MAP) 123/78 (93) 116/68 (84) 137/85 (102) Pulse Ox 99 99 100 O2 Delivery Room Air Room Air Room Air Room Air Intake and Output 01/31/20 01/31/20 02/01/20 14:59 22:59 06:59 Intake Total 570 ml 510 ml 500 ml Balance 570 ml 510 ml 500 ml Justicifation of Admission Dx: Justifications for Admission: Justification of Admission Dx: Yes LONI CASTANO MD Feb 01, 2020 14:32
[2020-02-01 15:00] VITALS: BP 114/79
--- NOTE | 2020-02-01 16:24 | RAD ---
INDICATION : Reason: n/v r/o GB/ / Spl. Instructions: / History: COMPARISON: CT from January 27, 2020 TECHNIQUE: Multiple ultrasound images obtained through the abdomen in grayscale and color. FINDINGS: Liver: Liver is echogenic Gallbladder: Gallstones. Contracted. IVC: Partially distended at level of liver. Common Bile Duct: 4 mm Pancreas: Partially seen without adjacent fluid collection Right Kidney: No hydronephrosis. IMPRESSION: * Gallbladder is partially contracted with gallstones seen. * Liver is echogenic. Nonspecific but can be from fatty infiltration. Electronically signed by: Nagi Muñoz MD (02/01/2020 4:22 PM) [id number]
[2020-02-01 19:00] VITALS: BP 110/64
--- NOTE | 2020-02-01 19:10 | NUR ---
Pt in bed assessment completed vss poc explained pt denied pain will resume care and continue to monitor pt.
[2020-02-01] MEDS: FAMOTIDINE 20 MG TABLET. PO SCH (21:17)
[2020-02-01 22:59] VITALS: BP 109/66
[2020-02-02 02:40] VITALS: BP 122/82
[2020-02-02] MEDS: metroNIDAZOLE 500 MG TABLET PO SCH ×2 (05:57→14:16)
[2020-02-02] MEDS ORDERED: SINCALIDE 1.66 MCG in IV NORMAL SALINE 50ML 30 ML IV ONE (08:15)
[2020-02-02] MEDS: LACTOBACILLUS RHAMNOSUS GG 1 CAPSULE. PO SCH (10:14)
--- NOTE | 2020-02-02 10:21 | RAD ---
HEPATOBILIARY SCAN WITH EJECTION FRACTION 02/02/2020 10:17 AM History: Nausea, vomiting, right upper quadrant pain Procedure: Serial static images are obtained of the liver and biliary system in the frontal projection following IV administration of 5.5 mCi of Technetium 99m Choletec. After filling of the gallbladder, 1.66 mcg of sincalide were infused over 30 minutes and dynamic imaging continued over this period. The gallbladder ejection fraction was calculated. Findings: There is prompt hepatic clearance of tracer from the blood pool. There is homogeneous distribution throughout the liver. The gallbladder ejection fraction measures 95% (normal gallbladder EF is 35% or greater). IMPRESSION: 1. The cystic duct and common bile duct are patent. Negative for acute cholecystitis. 2. The gallbladder ejection fraction is within normal limits Electronically signed by: Brett James MD (02/02/2020 10:18 AM) [id number]
--- NOTE | 2020-02-02 10:30 | PDOC ---
Date of Service: DATE: 02/02/20 TIME: 10:26 Subjective: Subjective: No nausea or vomiting "but I'm getting nausea meds around the clock because they just give it to me." No upper abdominal pain. Occasional pelvic "cramp." Ordered regular food for lunch. Objective: Objective: Reviewed w/ nurse - not getting nausea meds. Reviewed chart - last got Compazine and Zofran on 01/30. Vital Signs: Vital Signs Date Time Temp Pulse Resp B/P (MAP) Pulse Ox O2 Delivery O2 Flow Rate FiO2 02/02/20 07:30 Room Air 02/02/20 02:40 99.1 66 16 122/82 (95) 100 99.1 Imaging: RUQ US IMPRESSION: * Gallbladder is partially contracted with gallstones seen. * Liver is echogenic. Nonspecific but can be from fatty infiltration. HIDA Findings: There is prompt hepatic clearance of tracer from the blood pool. There is homogeneous distribution throughout the liver. The gallbladderejection fraction measures 95% (normal gallbladder EF is 35% or greater). IMPRESSION: 1. The cystic duct and common bile duct are patent. Negative for acute cholecystitis. 2. 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 Justicifation of Admission Dx: Justifications for Admission: Justification of Admission Dx: Yes RODRIGUEZ CARVER Feb 02, 2020 10:30
--- NOTE | 2020-02-02 10:51 | NUR ---
SS following up with discharge planning. SS reviewed pt chart and discussed with pt RN. Pt is currently on room air. COVID19 negative. Discharge plan is to home when medically ready. Pt is self pay. SS will continue to follow for discharge planning.
[2020-02-02 11:00] VITALS: BP 108/69
[2020-02-02 15:00] VITALS: BP 104/83
--- NOTE | 2020-02-02 15:02 | PDOC3 ---
Discharge Summary Visit Information Date of Admission: Jan 27, 2020 Date of Discharge: Feb 02, 2020 Admitting Diagnosis Comment: Colitis Final Diagnosis Acute colitis much improved Severe dehydration Poor oral intake Severe hyponatremia secondary to low effective circulatory volume Severe electrolyte derangement including hypokalemia and hypomagnesemia COVID 19 under investigation Brief Hospital Course Allergies Allergies Coded Allergies Type Severity Reaction Last Updated Verified No Known Drug Allergies 03/15/17 No Vital Signs Vital Signs Date Time Temp Pulse Resp B/P (MAP) Pulse Ox O2 Delivery O2 Flow Rate FiO2 02/02/20 11:00 97.9 62 18 108/69 (82) 98 Room Air 97.9 Lab Results Laboratory Tests Test 02/01/20 03:03 02/02/20 04:45 Sodium Level 141 mmol/L (136-145) Potassium Level 3.7 mmol/L (3.5-5.1) Chloride Level 105 mmol/L (98-107) Carbon Dioxide Level 25 mmol/L (21-32) Anion Gap 11 (6-14) Blood Urea Nitrogen 5 mg/dL (7-20) Creatinine 1.0 mg/dL (0.6-1.0) Estimated GFR (Cockcroft-Gault) 75.1 Glucose Level 102 mg/dL (70-99) Calcium Level 9.0 mg/dL (8.5-10.1) Phosphorus Level 3.5 mg/dL (2.6-4.7) Laboratory Tests Test 02/02/20 04:45 Phosphorus Level 3.5 mg/dL (2.6-4.7) Brief Hospital Course History of Present Illness History of Present Illness Patient admitted for severe abdominal pain and electrolyte disturbances 01/28/2020 No acute events reported overnight, case discussed with nursing staff patient in no acute distress no complaints during my visit patient only complaining of burning sensation while replacing her potassium plan of care has been explained in detail all of her concerns were addressed to the best of my abilities 01/29/2020 Patient with 2 events of diarrhea earlier in the day. Patient is still having hypokalemia most likely secondary to the bowel movements. Nauseous at the time of my visit in invisible acute distress due to the symptoms reassurance has been provided all of her concerns addressed to the best of my abilities GI product marketing consultant recommendations noted and greatly appreciated 01/30/2020 No acute events reported overnight, case discussed with nursing staff patient in no acute distress no complaints during my visit, unfortunately the patient continues to have nausea and vomiting which have not responded to Zofran. Compazine has been added and seems to be working better 01/31/2020 No new complaints, feels well and she has not had recurrence of symptoms, will follow recommendations from consultants. 02/01/2020 replace electrolytes follow recommendations from GI product marketing consultant, HIDA scan planned for today, advance diet pending results of the test continue with antibiotics for colitis follow stool studies compazine for symptoms control reassess in the am If she does well with diet she will be able to go home with instructions to follow up with GI and with Surgery Signs and symptoms of alarm were discussed prior to discharge, all concerns addressed to the best of my abilities. Assessment Assessment Lungs clear to auscultation CVS s1s2 rr no murmurs Discharge Information Condition at Discharge: Improved Follow Up: Weeks Disposition/Orders: D/C to Home Justicifation of Admission Dx: Justifications for Admission: Justification of Admission Dx: Yes LONI CASTANO MD Feb 02, 2020 15:02
--- NOTE | 2020-02-02 17:44 | NUR ---
Discharge Note: RADHA STACY [address] [place] [address] Discharge instructions and discharge home medications reviewed with Patient and a copy given. All questions have been answered and understanding verbalized. The following instructions and handouts were given: colitis info, gallstone info, hypokalemia info, hypomagnesemia info, hyponatremia info, dehydration info, list of doctors for patient to pick PCP & surgeon if needed. Discontinued lines and drains: Peripheral IV intact. Patient discharged to Home or Self Care with Parent via [facility] at 1744.
== END 2020-02-02 17:44 | disposition home or self-care (01) | DRG 392 ==
LOC: ER 11:31 → ED HOLD 15:28 → 2 NORTH 16:24 → 1 WEST ICU 17:49 → 2 NORTH 01-28 19:25
PROVIDERS: ADMIT Family Medicine; ATTEND Family Medicine
DX: K52.9 Noninfective gastroenteritis and colitis, unspecified (principal); E87.1 Hypo-osmolality and hyponatremia; L03.316 Cellulitis of umbilicus; E87.6 Hypokalemia; E83.42 Hypomagnesemia; E86.0 Dehydration; K21.9 Gastro-esophageal reflux disease without esophagitis; K80.20 Calculus of gallbladder without cholecystitis without obstruction; Z20.828 Contact with and (suspected) exposure to other viral communicable diseases
CPT/HCPCS: 36415; 74177; 76705; 78227; 80048; 80053; 80307; 81001; 81025; 82607; 83690; 83735; 83930; 83935; 84100; 84439; 84443; 85007; 85025; 87505; 96361; 96365; 96375; A9537; G0480; J0780; J1956; J2270; J2405; J2805; J3475; J3480; J3490; J7030; Q9967; 99285-25; G0378; U0003-CS